=== PATIENT | male | born 1945 | race Caucasian/White ===

== ENCOUNTER 2017-04-26 09:46 | Inpatient (IN) | payer MEDICARE ==
[2017-04-26] MEDS ORDERED: Prevnar 13-Val Conj/PF 0.5 ML SYRINGE IM ONE (11:30)
[2017-04-26] MEDS ORDERED: FLU VACC TS2017-18 (>65YR) 0.5 ML SYRINGE IM ONE (11:30)
[2017-04-26] MEDS ORDERED: Bisacodyl 5 MG TAB PO PRN (13:47)
[2017-04-26] MEDS ORDERED: Non-Formulary Item 1 EACH (Omeprazole Magnesium [Prilosec Otc] 20 MG) PO PRN (13:51)
[2017-04-26] MEDS ORDERED: Tamsulosin HCl 0.4 MG CAP PO PRN (13:51)
[2017-04-26] MEDS ORDERED: Dextrose 5% in Water 1,000 ML IV PRN (13:57)
[2017-04-26] MEDS ORDERED: HumaLOG 300 UNITS/3 ML VIAL SC PRN (13:57)
[2017-04-26] MEDS ORDERED: Dextrose 50% Abboject 50 ML SYRINGE SLOW IVP PRN (13:57)
[2017-04-26] MEDS ORDERED: [UNRECOGNIZED DRUG - REMARK] IVPB PRN (14:12)
[2017-04-26] MEDS: HYDROcodone/Acetaminophen 5/325 mg Tablet PO PRN (14:27)
[2017-04-26] MEDS: Gabapentin 300 MG CAP PO SCH ×2 (14:28→21:16)
[2017-04-26] MEDS: Vancomycin HCl 1 GM in Sodium Chloride 0.9% 250 ML 250 ML IVPB SCH (14:54)
[2017-04-26] MEDS: SODIUM CHLORIDE 0.9% IVPB SCH (14:55)
[2017-04-26] MEDS: VANCOMYCIN HCL IVPB SCH (14:55)
--- NOTE | 2017-04-26 15:03 | HP ---
SWING BED ADMIT NOTE REASON FOR TRANSFER TO SWING BED: Six weeks of IV antibiotics required for diabetic foot ulcer. HISTORY OF PRESENT ILLNESS: Patient is a 71-year-old white male with significant comorbidities inclu ding hypertension, dyslipidemia, coronary artery disease status post stent placement, venous insuffic iency, diabetic neuropathy, insulin-dependent diabetes mellitus and suspected peripheral vascular dis ease who presented to [facility] with foot pain. Patient has a history of a diab etic foot ulcer who has been treated on the feet for greater than 1 month. He saw his director equipment who gave him antibiotics. He finished a course of antibiotics, but he continued to have some pain, eryt luis miguel, and discharge. He has a history of suspected Charcot malformations to his foot due to his diab etic neuropathy. In the emergency room, he was found to have a diabetic foot ulcer and admitted to [facility]. During his hospital stay there, he underwent I and D of the left foot ulcer. He also h ad a small right diabetic foot ulcer which was treated conservatively. He had blood cultures that we re positive for MRSA. It was unsure if the patient had osteomyelitis and apparently a specimen was o btained during this surgical debridement of which results are pending for infection to the bone. Dayana wilcox was otherwise medically stable and felt at that time the patient could be transferred to a [facility] nursing facility for 6 weeks of IV vancomycin pending results of the bone wound culture and daiana summers was accepted to [facility] for swing bed for IV antibiotics. PAST MEDICAL HISTORY: 1. Insulin-dependent diabetes mellitus. 2. History of diabetic neuropathy with poor sensation. 3. History of venous insufficiency. 4. History of coronary artery disease status post stent placement x4. 5. Hypertension. 6. Hyperlipidemia. 7. Charcot foot x2 with recent treatment for diabetic foot ulcer. PAST SURGICAL HISTORY: Right knee replacement x2, left knee replacement x1, cardiac catheterization, status post stent placement x4. FAMILY HISTORY: Positive for hypertension and possible history for father with uncontrolled diabetes . SOCIAL HISTORY: Patient lives with his in [place]. No significant smoking, alcohol or social drug use. The patient had been fairly independent in all activities of daily living prior to his [place] ent admission. ALLERGIES: No known drug allergies. CURRENT MEDICATIONS: Patient is on Lantus 40 units daily, metoprolol dose unknown p.o. b.i.d., aspir in 325 mg daily, atorvastatin daily, enalapril daily, [place] 10/325 p.o. q.4 hours p.r.n. pain. The p atient was recently on vancomycin q.12 hours, metformin 1000 mg b.i.d., Lasix 40 mg daily, gabapentin 600 mg t.i.d., isosorbide dinitrate 40 mg daily, and potassium chloride 20 mEq daily. The patient t akes [id number] omeprazole 20 mg daily. The patient is on CoQ10 325mg mg once a day. REVIEW OF SYSTEMS: Patient reports no significant symptoms other than what is in the HPI. No recent fevers, no chills, no nausea or vomiting. The patient reports appetite is good. No recent chest pa in or shortness of breath. No significant weight gain or weight loss. The patient reports appetite has been well. No dysuria, hematuria or change in urinary frequency. Patient denies any back pain, no significant abdominal pain. The patient reports very decreased sensation to his lower extremities , which is a chronic state. The patient denies any significant lower extremity edema. No new rashes reported by patient. Patient has no recent changes in visual function. Patient denies depression. PHYSICAL EXAMINATION: VITAL SIGNS: Blood pressure was 131/62, respiratory rate was 16, pulse was 68, temperature was 99.0, and O2 sat 97% on room air. GENERAL: White male, alert and oriented x3, in no obvious distress. HEENT: Atraumatic, normocephalic. Extraocular movements are intact. Pupils are equal, round, and r eactive to light and accommodation. Oropharynx, mucous membranes were moist. No exudate, discharge or lesions. NECK: Supple. No masses palpated, no bruits auscultated. CHEST: Clear to auscultation bilaterally. HEART: Regular rate and rhythm. ABDOMEN: Soft, nontender, nondistended, no masses were palpated. EXTREMITIES: Bandage was removed from left lower extremity showed a wound to the left medial plantar foot. There was obvious deformity of the foot noted consistent with sarcoid foot. The wound was pa cked well. There was no significant discharge, no erythema. There is really no sensation to the wou nd noted. Evaluation of right lower extremity showed a very small linear ulcer to the plantar medial aspect. No surrounding erythema, discharge or warmth noted, very difficult to palpate pulses to the lower extremities bilaterally. ASSESSMENT AND PLAN: 1. Diabetic infection, left foot with history of Charcot foot, methicillin-resistant Staphylococcus aureus bacteremia, suspected methicillin-resistant Staphylococcus aureus to the wound. The patient w ill be continued on vancomycin and he was ordered by his director equipment to have 6 weeks of vancomycin. Crista fall will await the results of the wound culture of the bone to assess for osteomyelitis. The patient's director equipment, Dr. Roa, would like to evaluate him weekly. While in the hospital, we will have loca l wound care with daily dressing changes and will repack that wound. 2. Diabetic ulcer, right foot. This appears to be very mild in character, it is very superficial, w ill continue local wound care. 3. Insulin-dependent diabetes mellitus. We will place patient on his daily long-acting insulin, Lev stephanie plus insulin sliding scale. We will place patient on diabetic diet. We will also continue his either Invokana or Jardiance. We will verify with his and will also in addition to metformin, w e will place him on a sliding scale for insulin as needed as well as a diabetic diet. 4. History coronary artery disease. Patient is currently stable from a cardiac standpoint. We will continue him on his routine medications including JENNIFER inhibitor, beta colt and nitrate. 5. Disposition: Patient is currently nonweightbearing by his director equipment. Recommendations for the l eft lower extremity, we will start him on physical therapy, range of motion exercises for the rest of the extremities. 6. Deep venous thrombosis prophylaxis. We will use SCDs as appropriate since the patient is nonweig htbearing on the left lower extremity. 7. Hypertension. We will continue patient on his current diabetic since as well as hypertensive med ications. DISCHARGE PLAN: The patient will likely be discharged to home. Again, he will likely need at least 6 weeks of IV antibiotics.
[2017-04-26] MEDS: metFORMIN XR 500 MG TAB PO SCH (17:03)
[2017-04-26] MEDS: Sodium Chloride 0.9% 10 ML ONE (19:50)
[2017-04-26] MEDS ORDERED: VIT B6 PO SCH (21:00)
[2017-04-26] MEDS ORDERED: CYANOCOBALAMIN PO SCH (21:00)
[2017-04-26] MEDS ORDERED: Non-Formulary Item 1 EACH (Metformin Hcl [Metformin Hcl Er] 1,000 MG) PO SCH (21:00)
[2017-04-26] MEDS ORDERED: Non-Formulary Item 1 EACH (Atorvastatin Calcium [Atorvastatin Calcium] 40 MG) PO SCH (21:00)
[2017-04-26] MEDS ORDERED: ENALAPRIL MALEATE 20 MG PO SCH (21:00)
[2017-04-26] MEDS ORDERED: METOPROLOL TARTRATE 25 MG PO SCH (21:00)
[2017-04-26] MEDS ORDERED: FOLIC AC PO SCH (21:00)
[2017-04-26] MEDS ORDERED: Vancomycin HCl 1.5 GM in Sodium Chloride 0.9% 250 ML 300 ML IVPB SCH (21:00)
[2017-04-26] MEDS: Potassium Chloride 20 MEQ TAB PO SCH (21:14)
[2017-04-26] MEDS: Stress 600 With Zinc 1 TAB PO SCH (21:15)
[2017-04-26] MEDS: Atorvastatin Calcium 40 MG TAB PO SCH (21:15)
[2017-04-26] MEDS: Docusate 100 MG CAP PO SCH (21:16)
[2017-04-26] MEDS: Metoprolol Tartrate 25 MG TAB PO SCH (21:17)
[2017-04-26] MEDS: HYDROcodone/Acetaminophen 10/325 mg Tablet PO PRN (21:17)
[2017-04-27] MEDS: VANCOMYCIN HCL IVPB SCH ×2 (03:12→15:02)
[2017-04-27] MEDS: SODIUM CHLORIDE 0.9% IVPB SCH ×2 (03:12→15:02)
[2017-04-27] MEDS: Vancomycin HCl 1 GM in Sodium Chloride 0.9% 250 ML 250 ML IVPB SCH ×2 (03:17→15:02)
[2017-04-27] MEDS: HYDROcodone/Acetaminophen 5/325 mg Tablet PO PRN ×2 (05:18→15:23)
[2017-04-27 05:39] LABS: #Basophils 0.1 thou/uL (0.0-0.2); #Eosinphils 0.2 thou/uL (0.0-0.7); #Lymphocytes 1.1 thou/uL (1.20-3.40); #Monocytes 0.9 thou/uL (0.11-0.59); %Eosinophils 1.8 % (0.0-10.0); %Lymphocytes 10.7 % (21.0-51.0); %Monocytes 8.8 % (0.0-10.0); %Neutrophils 77.7 % (42.0-75.0); Hemoglobin 11.1 g/dL (14.0-18.0); Mean Corpuscular HGB CONC 36.2 g/dL (32.0-36.0); Mean Corpuscular Hemoglobin 31.4 pg (27.0-31.0); Mean Corpuscular Volume 86.7 fl (80.0-94.0); Mean Platelet Volume 6.3 fL (7.4-10.4); Platelet Count 394 thou/uL (130-400); RBC Distribution Width 12.5 % (11.5-14.5); Red Blood Cell (RBC) Count 3.55 mill/uL (4.70-6.10); White Blood Cell (WBC) Count 10.2 thou/uL (4.8-10.8)
[2017-04-27 05:48] LABS: ALT (SGPT) 57 U/L (8-55); AST (SGOT) 49 U/L (5-34); Alkaline Phosphatase 185 U/L (40-150); Anion Gap 16 mmol/L (10-20); BUN (Urea Nitrogen) 14 mg/dL (8.4-25.7); Bilirubin, Total 1.1 mg/dL (0.2-1.2); Calc. Creatinine Clearance 126 mL/min (70-130); Carbon Dioxide 23 mmol/L (23-31); Chloride 99 mmol/L (98-107); Estimated GFR-MDRD Greater than 90; Globulin 4.1 g/dL (2.4-3.5); Glucose 95 mg/dL (83-110); Potassium 4.8 mmol/L (3.5-5.1); Protein, Total 7.1 g/dL (5.8-8.1); Sodium 133 mmol/L (136-145)
[2017-04-27] MEDS ORDERED: INVOKANA 100 MG PO SCH (09:00)
[2017-04-27] MEDS ORDERED: Lisinopril 20 MG TAB PO SCH (09:00)
[2017-04-27] MEDS ORDERED: UBIDECARENONE 300 MG PO SCH (09:00)
[2017-04-27] MEDS ORDERED: Non-Formulary Item 1 EACH (Canagliflozin [Invokana] 100 MG) PO SCH (09:00)
[2017-04-27] MEDS: Polyethylene Glycol 3350 17 GM Packet PO SCH (09:05)
[2017-04-27] MEDS: Stress 600 With Zinc 1 TAB PO SCH ×2 (09:08→21:23)
[2017-04-27] MEDS: Isosorbide Dinitrate 20 MG TAB PO SCH (09:09)
[2017-04-27] MEDS: Aspirin 325 MG TAB PO SCH (09:10)
[2017-04-27] MEDS: Furosemide 40 MG TAB PO SCH (09:10)
[2017-04-27] MEDS: Gabapentin 300 MG CAP PO SCH ×3 (09:10→21:23)
[2017-04-27] MEDS: Docusate 100 MG CAP PO SCH ×2 (09:10→21:23)
[2017-04-27] MEDS: metFORMIN XR 500 MG TAB PO SCH ×2 (09:13→17:17)
[2017-04-27] MEDS: Metoprolol Tartrate 25 MG TAB PO SCH ×2 (09:14→21:24)
[2017-04-27] MEDS: Sodium Chloride 0.9% 10 ML ONE (09:25)
[2017-04-27] MEDS: Enoxaparin Sodium 40 MG/0.4 ML SYRINGE SC SCH (09:26)
[2017-04-27] MEDS: Levemir Flexpen 100 UNITS/ML PEN SC SCH (09:28)
[2017-04-27] MEDS: Atorvastatin Calcium 40 MG TAB PO SCH (21:23)
[2017-04-27] MEDS: Fish Oil 1,000 MG CAP PO SCH (21:23)
[2017-04-27] MEDS: Potassium Chloride 20 MEQ TAB PO SCH (21:24)
[2017-04-28 02:26] LABS: Vancomycin, Trough 16.6 ug/mL
[2017-04-28] MEDS: Vancomycin HCl 1 GM in Sodium Chloride 0.9% 250 ML 250 ML IVPB SCH ×2 (02:53→16:28)
[2017-04-28] MEDS: SODIUM CHLORIDE 0.9% IVPB SCH ×2 (02:54→15:08)
[2017-04-28] MEDS: VANCOMYCIN HCL IVPB SCH ×2 (02:54→15:08)
[2017-04-28 05:03] LABS: Hemoglobin 10.4 g/dL (14.0-18.0); Platelet Count 420 thou/uL (130-400)
[2017-04-28 05:10] LABS: Calc. Creatinine Clearance 128 mL/min (70-130); Estimated GFR-MDRD Greater than 90
[2017-04-28] MEDS: HYDROcodone/Acetaminophen 5/325 mg Tablet PO PRN (06:26)
[2017-04-28] MEDS: metFORMIN XR 500 MG TAB PO SCH ×2 (08:45→17:35)
[2017-04-28] MEDS ORDERED: JARDIANCE 10MG PO SCH (09:00)
[2017-04-28] MEDS: Aspirin 325 MG TAB PO SCH (09:45)
[2017-04-28] MEDS: Docusate 100 MG CAP PO SCH ×2 (09:46→21:06)
[2017-04-28] MEDS: Enoxaparin Sodium 40 MG/0.4 ML SYRINGE SC SCH (09:48)
[2017-04-28] MEDS: Furosemide 40 MG TAB PO SCH (09:48)
[2017-04-28] MEDS: Gabapentin 300 MG CAP PO SCH ×3 (09:49→21:01)
[2017-04-28] MEDS: Isosorbide Dinitrate 20 MG TAB PO SCH (09:49)
[2017-04-28] MEDS: Metoprolol Tartrate 25 MG TAB PO SCH ×2 (09:50→21:05)
[2017-04-28] MEDS: Stress 600 With Zinc 1 TAB PO SCH ×2 (09:51→21:02)
[2017-04-28] MEDS: Polyethylene Glycol 3350 17 GM Packet PO SCH (09:52)
[2017-04-28] MEDS: Levemir Flexpen 100 UNITS/ML PEN SC SCH (09:56)
[2017-04-28] MEDS: JARDIANCE 10MG PO SCH (09:56)
[2017-04-28] MEDS: HYDROcodone/Acetaminophen 10/325 mg Tablet PO PRN (15:11)
[2017-04-28] MEDS: Fish Oil 1,000 MG CAP PO SCH (21:02)
[2017-04-28] MEDS: Potassium Chloride 20 MEQ TAB PO SCH (21:02)
[2017-04-28] MEDS: Atorvastatin Calcium 40 MG TAB PO SCH (21:05)
[2017-04-29] MEDS: HYDROcodone/Acetaminophen 10/325 mg Tablet PO PRN ×2 (01:30→11:37)
[2017-04-29] MEDS: Vancomycin HCl 1 GM in Sodium Chloride 0.9% 250 ML 250 ML IVPB SCH ×2 (02:58→16:10)
[2017-04-29] MEDS: VANCOMYCIN HCL IVPB SCH ×2 (02:58→15:09)
[2017-04-29] MEDS: SODIUM CHLORIDE 0.9% IVPB SCH ×2 (02:58→15:09)
[2017-04-29] MEDS: Stress 600 With Zinc 1 TAB PO SCH ×2 (08:25→20:39)
[2017-04-29] MEDS: metFORMIN XR 500 MG TAB PO SCH ×2 (08:27→18:02)
[2017-04-29] MEDS: Aspirin 325 MG TAB PO SCH (08:27)
[2017-04-29] MEDS: Atorvastatin Calcium 40 MG TAB PO SCH (08:28)
[2017-04-29] MEDS: Gabapentin 300 MG CAP PO SCH ×3 (08:28→20:39)
[2017-04-29] MEDS: Isosorbide Dinitrate 20 MG TAB PO SCH (08:29)
[2017-04-29] MEDS: Metoprolol Tartrate 25 MG TAB PO SCH ×2 (08:30→20:39)
[2017-04-29] MEDS: Polyethylene Glycol 3350 17 GM Packet PO SCH (08:31)
[2017-04-29] MEDS: JARDIANCE 10MG PO SCH (08:31)
[2017-04-29] MEDS: Levemir Flexpen 100 UNITS/ML PEN SC SCH (08:32)
[2017-04-29] MEDS: Furosemide 40 MG TAB PO SCH (08:33)
[2017-04-29] MEDS: Enoxaparin Sodium 40 MG/0.4 ML SYRINGE SC SCH (08:33)
[2017-04-29] MEDS: Docusate 100 MG CAP PO SCH ×2 (08:35→20:40)
[2017-04-29] MEDS: Nystatin Powder 15 GM BOT TOP SCH ×2 (15:10→20:42)
[2017-04-29] MEDS: Fish Oil 1,000 MG CAP PO SCH (20:39)
[2017-04-29] MEDS: Potassium Chloride 20 MEQ TAB PO SCH (20:39)
[2017-04-30] MEDS: VANCOMYCIN HCL IVPB SCH ×2 (02:55→18:03)
[2017-04-30] MEDS: SODIUM CHLORIDE 0.9% IVPB SCH ×2 (02:55→18:03)
[2017-04-30] MEDS: Vancomycin HCl 1 GM in Sodium Chloride 0.9% 250 ML 250 ML IVPB SCH ×2 (02:59→18:04)
[2017-04-30 04:07] LABS: Hemoglobin 10.1 g/dL (14.0-18.0); Platelet Count 455 thou/uL (130-400)
[2017-04-30 05:00] LABS: Calc. Creatinine Clearance 104 mL/min (70-130); Estimated GFR-MDRD Greater than 90
[2017-04-30] MEDS: metFORMIN XR 500 MG TAB PO SCH ×2 (09:11→18:13)
[2017-04-30] MEDS: Atorvastatin Calcium 40 MG TAB PO SCH (09:11)
[2017-04-30] MEDS: Isosorbide Dinitrate 20 MG TAB PO SCH (09:11)
[2017-04-30] MEDS: Gabapentin 300 MG CAP PO SCH ×3 (09:11→21:09)
[2017-04-30] MEDS: Furosemide 40 MG TAB PO SCH (09:12)
[2017-04-30] MEDS: Aspirin 325 MG TAB PO SCH (09:12)
[2017-04-30] MEDS: Stress 600 With Zinc 1 TAB PO SCH ×2 (09:12→21:08)
[2017-04-30] MEDS: Metoprolol Tartrate 25 MG TAB PO SCH ×2 (09:12→21:14)
[2017-04-30] MEDS: Docusate 100 MG CAP PO SCH ×2 (09:12→21:10)
[2017-04-30] MEDS: Polyethylene Glycol 3350 17 GM Packet PO SCH (09:13)
[2017-04-30] MEDS: Enoxaparin Sodium 40 MG/0.4 ML SYRINGE SC SCH (09:13)
[2017-04-30] MEDS: Nystatin Powder 15 GM BOT TOP SCH ×3 (09:15→21:10)
[2017-04-30] MEDS: JARDIANCE 10MG PO SCH (09:15)
[2017-04-30] MEDS: Levemir Flexpen 100 UNITS/ML PEN SC SCH (09:17)
[2017-04-30 17:15] LABS: Vancomycin, Trough 25.1 ug/mL
[2017-04-30] MEDS: Fish Oil 1,000 MG CAP PO SCH (21:08)
[2017-04-30] MEDS: Potassium Chloride 20 MEQ TAB PO SCH (21:09)
[2017-05-01] MEDS: Vancomycin HCl 1 GM in Sodium Chloride 0.9% 250 ML 250 ML IVPB SCH ×2 (02:52→14:44)
[2017-05-01] MEDS: metFORMIN XR 500 MG TAB PO SCH ×2 (08:21→17:59)
[2017-05-01] MEDS: Isosorbide Dinitrate 20 MG TAB PO SCH (08:22)
[2017-05-01] MEDS: Aspirin 325 MG TAB PO SCH (08:23)
[2017-05-01] MEDS: Saccharomyces boulardii 250 MG CAP PO SCH (08:24)
[2017-05-01] MEDS: Gabapentin 300 MG CAP PO SCH ×3 (08:24→21:02)
[2017-05-01] MEDS: Metoprolol Tartrate 25 MG TAB PO SCH ×2 (08:25→21:03)
[2017-05-01] MEDS: Atorvastatin Calcium 40 MG TAB PO SCH (08:26)
[2017-05-01] MEDS: Stress 600 With Zinc 1 TAB PO SCH ×2 (08:27→21:06)
[2017-05-01] MEDS: Furosemide 40 MG TAB PO SCH (08:27)
[2017-05-01] MEDS: Polyethylene Glycol 3350 17 GM Packet PO SCH (08:28)
[2017-05-01] MEDS: Docusate 100 MG CAP PO SCH ×2 (08:28→21:04)
[2017-05-01] MEDS: Enoxaparin Sodium 40 MG/0.4 ML SYRINGE SC SCH (08:29)
[2017-05-01] MEDS: JARDIANCE 10MG PO SCH (08:31)
[2017-05-01] MEDS: Nystatin Powder 15 GM BOT TOP SCH ×3 (08:32→21:04)
[2017-05-01] MEDS: Levemir Flexpen 100 UNITS/ML PEN SC SCH (08:33)
[2017-05-01 13:24] LABS: ALT (SGPT) 98 U/L (8-55); AST (SGOT) 96 U/L (5-34); Albumin 2.8 g/dL (3.4-4.8); Alkaline Phosphatase 135 U/L (40-150); Anion Gap 15 mmol/L (10-20); BUN (Urea Nitrogen) 18 mg/dL (8.4-25.7); Bilirubin, Total 0.5 mg/dL (0.2-1.2); Calc. Creatinine Clearance 104 mL/min (70-130); Calcium 9.5 mg/dL (7.8-10.44); Carbon Dioxide 24 mmol/L (23-31); Chloride 96 mmol/L (98-107); Estimated GFR-MDRD Greater than 90; Glucose 139 mg/dL (83-110); Potassium 4.5 mmol/L (3.5-5.1); Protein, Total 6.8 g/dL (5.8-8.1); Sodium 130 mmol/L (136-145)
[2017-05-01] MEDS: Potassium Chloride 20 MEQ TAB PO SCH (21:02)
[2017-05-01] MEDS: Fish Oil 1,000 MG CAP PO SCH (21:03)
[2017-05-02] MEDS: Vancomycin HCl 1 GM in Sodium Chloride 0.9% 250 ML 250 ML IVPB SCH ×2 (02:54→15:11)
[2017-05-02 05:20] LABS: Hemoglobin 10.6 g/dL (14.0-18.0); Platelet Count 542 thou/uL (130-400)
[2017-05-02 05:28] LABS: Calc. Creatinine Clearance 114 mL/min (70-130); Estimated GFR-MDRD Greater than 90
[2017-05-02] MEDS: Gabapentin 300 MG CAP PO SCH ×3 (08:41→21:21)
[2017-05-02] MEDS: metFORMIN XR 500 MG TAB PO SCH ×2 (08:41→18:11)
[2017-05-02] MEDS: Saccharomyces boulardii 250 MG CAP PO SCH (08:41)
[2017-05-02] MEDS: Atorvastatin Calcium 40 MG TAB PO SCH (08:42)
[2017-05-02] MEDS: Isosorbide Dinitrate 20 MG TAB PO SCH (08:42)
[2017-05-02] MEDS: Furosemide 40 MG TAB PO SCH (08:42)
[2017-05-02] MEDS: Stress 600 With Zinc 1 TAB PO SCH ×2 (08:42→21:20)
[2017-05-02] MEDS: Aspirin 325 MG TAB PO SCH (08:43)
[2017-05-02] MEDS: Metoprolol Tartrate 25 MG TAB PO SCH ×2 (08:43→21:21)
[2017-05-02] MEDS: Polyethylene Glycol 3350 17 GM Packet PO SCH (08:44)
[2017-05-02] MEDS: Docusate 100 MG CAP PO SCH ×2 (08:44→21:21)
[2017-05-02] MEDS: JARDIANCE 10MG PO SCH (08:44)
[2017-05-02] MEDS: Enoxaparin Sodium 40 MG/0.4 ML SYRINGE SC SCH (08:46)
[2017-05-02] MEDS: Nystatin Powder 15 GM BOT TOP SCH ×3 (08:46→21:22)
[2017-05-02] MEDS: Levemir Flexpen 100 UNITS/ML PEN SC SCH (08:48)
[2017-05-02 14:15] LABS: Vancomycin, Trough 17.9 ug/mL
[2017-05-02] MEDS: Fish Oil 1,000 MG CAP PO SCH (21:20)
[2017-05-02] MEDS: Potassium Chloride 20 MEQ TAB PO SCH (21:22)
[2017-05-03] MEDS: Vancomycin HCl 1 GM in Sodium Chloride 0.9% 250 ML 250 ML IVPB SCH ×2 (02:48→14:09)
[2017-05-03] MEDS: metFORMIN XR 500 MG TAB PO SCH ×2 (08:01→17:41)
[2017-05-03] MEDS: Aspirin 325 MG TAB PO SCH (08:02)
[2017-05-03] MEDS: Gabapentin 300 MG CAP PO SCH ×3 (08:02→20:55)
[2017-05-03] MEDS: Atorvastatin Calcium 40 MG TAB PO SCH (08:03)
[2017-05-03] MEDS: Isosorbide Dinitrate 20 MG TAB PO SCH (08:03)
[2017-05-03] MEDS: Enoxaparin Sodium 40 MG/0.4 ML SYRINGE SC SCH (08:04)
[2017-05-03] MEDS: Metoprolol Tartrate 25 MG TAB PO SCH ×2 (08:04→20:57)
[2017-05-03] MEDS: Saccharomyces boulardii 250 MG CAP PO SCH (08:04)
[2017-05-03] MEDS: Furosemide 40 MG TAB PO SCH (08:06)
[2017-05-03] MEDS: Docusate 100 MG CAP PO SCH ×2 (08:06→20:56)
[2017-05-03] MEDS: Polyethylene Glycol 3350 17 GM Packet PO SCH (08:06)
[2017-05-03] MEDS: JARDIANCE 10MG PO SCH (08:06)
[2017-05-03] MEDS: Stress 600 With Zinc 1 TAB PO SCH ×2 (08:07→20:55)
[2017-05-03] MEDS: Nystatin Powder 15 GM BOT TOP SCH ×3 (08:07→20:59)
[2017-05-03] MEDS: Levemir Flexpen 100 UNITS/ML PEN SC SCH (08:08)
[2017-05-03] MEDS: HumaLOG 300 UNITS/3 ML VIAL SC PRN (12:51)
[2017-05-03] MEDS: HYDROcodone/Acetaminophen 10/325 mg Tablet PO PRN ×3 (13:56→22:17)
[2017-05-03] MEDS: Fish Oil 1,000 MG CAP PO SCH (20:55)
[2017-05-03] MEDS: Potassium Chloride 20 MEQ TAB PO SCH (20:56)
[2017-05-04] MEDS: Vancomycin HCl 1 GM in Sodium Chloride 0.9% 250 ML 250 ML IVPB SCH ×2 (02:31→14:59)
[2017-05-04 06:02] LABS: Hemoglobin 11.1 g/dL (14.0-18.0); Platelet Count 452 thou/uL (130-400)
[2017-05-04 06:06] LABS: Calc. Creatinine Clearance 104 mL/min (70-130); Estimated GFR-MDRD Greater than 90
[2017-05-04] MEDS: Levemir Flexpen 100 UNITS/ML PEN SC SCH (09:06)
[2017-05-04] MEDS: Polyethylene Glycol 3350 17 GM Packet PO SCH (09:09)
[2017-05-04] MEDS: Isosorbide Dinitrate 20 MG TAB PO SCH (09:10)
[2017-05-04] MEDS: Stress 600 With Zinc 1 TAB PO SCH ×2 (09:10→20:47)
[2017-05-04] MEDS: Gabapentin 300 MG CAP PO SCH ×3 (09:10→20:45)
[2017-05-04] MEDS: Atorvastatin Calcium 40 MG TAB PO SCH (09:10)
[2017-05-04] MEDS: Furosemide 40 MG TAB PO SCH (09:10)
[2017-05-04] MEDS: Metoprolol Tartrate 25 MG TAB PO SCH ×2 (09:11→20:46)
[2017-05-04] MEDS: Saccharomyces boulardii 250 MG CAP PO SCH (09:11)
[2017-05-04] MEDS: Docusate 100 MG CAP PO SCH ×2 (09:11→20:44)
[2017-05-04] MEDS: Aspirin 325 MG TAB PO SCH (09:12)
[2017-05-04] MEDS: metFORMIN XR 500 MG TAB PO SCH ×2 (09:12→17:33)
[2017-05-04] MEDS: JARDIANCE 10MG PO SCH (09:13)
[2017-05-04] MEDS: Nystatin Powder 15 GM BOT TOP SCH ×3 (09:14→20:47)
[2017-05-04] MEDS: Enoxaparin Sodium 40 MG/0.4 ML SYRINGE SC SCH (09:21)
[2017-05-04] MEDS: HumaLOG 300 UNITS/3 ML VIAL SC PRN (13:17)
[2017-05-04 14:29] LABS: Vancomycin, Trough 20.3 ug/mL
[2017-05-04] MEDS: Fish Oil 1,000 MG CAP PO SCH (20:44)
[2017-05-04] MEDS: Potassium Chloride 20 MEQ TAB PO SCH (20:46)
[2017-05-05] MEDS: Vancomycin HCl 1 GM in Sodium Chloride 0.9% 250 ML 250 ML IVPB SCH ×2 (02:34→15:15)
[2017-05-05] MEDS: Levemir Flexpen 100 UNITS/ML PEN SC SCH (08:58)
[2017-05-05] MEDS: Enoxaparin Sodium 40 MG/0.4 ML SYRINGE SC SCH (09:01)
[2017-05-05] MEDS: Polyethylene Glycol 3350 17 GM Packet PO SCH (09:03)
[2017-05-05] MEDS: Stress 600 With Zinc 1 TAB PO SCH ×2 (09:03→20:14)
[2017-05-05] MEDS: Gabapentin 300 MG CAP PO SCH ×3 (09:04→20:15)
[2017-05-05] MEDS: Atorvastatin Calcium 40 MG TAB PO SCH (09:04)
[2017-05-05] MEDS: Metoprolol Tartrate 25 MG TAB PO SCH ×2 (09:04→20:16)
[2017-05-05] MEDS: Aspirin 325 MG TAB PO SCH (09:05)
[2017-05-05] MEDS: Isosorbide Dinitrate 20 MG TAB PO SCH (09:05)
[2017-05-05] MEDS: metFORMIN XR 500 MG TAB PO SCH ×2 (09:05→18:12)
[2017-05-05] MEDS: Docusate 100 MG CAP PO SCH ×2 (09:05→20:15)
[2017-05-05] MEDS: Furosemide 40 MG TAB PO SCH (09:05)
[2017-05-05] MEDS: Saccharomyces boulardii 250 MG CAP PO SCH (09:06)
[2017-05-05] MEDS: JARDIANCE 10MG PO SCH (09:07)
[2017-05-05] MEDS: Nystatin Powder 15 GM BOT TOP SCH ×3 (09:08→20:16)
[2017-05-05] MEDS: Fish Oil 1,000 MG CAP PO SCH (20:14)
[2017-05-05] MEDS: Potassium Chloride 20 MEQ TAB PO SCH (20:16)
[2017-05-06] MEDS: Vancomycin HCl 1 GM in Sodium Chloride 0.9% 250 ML 250 ML IVPB SCH ×2 (02:14→14:41)
[2017-05-06 05:48] LABS: Platelet Count 456 thou/uL (130-400)
[2017-05-06 05:55] LABS: Calc. Creatinine Clearance 113 mL/min (70-130); Estimated GFR-MDRD Greater than 90
[2017-05-06] MEDS: Levemir Flexpen 100 UNITS/ML PEN SC SCH (07:44)
[2017-05-06] MEDS: Enoxaparin Sodium 40 MG/0.4 ML SYRINGE SC SCH (07:46)
[2017-05-06] MEDS: JARDIANCE 10MG PO SCH (07:47)
[2017-05-06] MEDS: Gabapentin 300 MG CAP PO SCH ×3 (07:49→20:41)
[2017-05-06] MEDS: Isosorbide Dinitrate 20 MG TAB PO SCH (07:49)
[2017-05-06] MEDS: Metoprolol Tartrate 25 MG TAB PO SCH ×2 (07:49→20:41)
[2017-05-06] MEDS: Atorvastatin Calcium 40 MG TAB PO SCH (07:50)
[2017-05-06] MEDS: Stress 600 With Zinc 1 TAB PO SCH ×2 (07:50→20:43)
[2017-05-06] MEDS: metFORMIN XR 500 MG TAB PO SCH ×2 (07:50→17:19)
[2017-05-06] MEDS: Furosemide 40 MG TAB PO SCH (07:50)
[2017-05-06] MEDS: Nystatin Powder 15 GM BOT TOP SCH ×3 (07:51→20:41)
[2017-05-06] MEDS: Aspirin 325 MG TAB PO SCH (07:51)
[2017-05-06] MEDS: Saccharomyces boulardii 250 MG CAP PO SCH (07:51)
[2017-05-06] MEDS: Docusate 100 MG CAP PO SCH ×2 (07:53→20:40)
[2017-05-06] MEDS: Polyethylene Glycol 3350 17 GM Packet PO SCH (07:53)
[2017-05-06 14:22] LABS: Vancomycin, Trough 18.2 ug/mL
[2017-05-06] MEDS: Fish Oil 1,000 MG CAP PO SCH (20:41)
[2017-05-06] MEDS: Potassium Chloride 20 MEQ TAB PO SCH (20:42)
[2017-05-07] MEDS: Vancomycin HCl 1 GM in Sodium Chloride 0.9% 250 ML 250 ML IVPB SCH ×2 (02:55→15:12)
[2017-05-07] MEDS: Levemir Flexpen 100 UNITS/ML PEN SC SCH (08:02)
[2017-05-07] MEDS: Enoxaparin Sodium 40 MG/0.4 ML SYRINGE SC SCH (08:08)
[2017-05-07] MEDS: Stress 600 With Zinc 1 TAB PO SCH ×2 (08:11→21:44)
[2017-05-07] MEDS: Polyethylene Glycol 3350 17 GM Packet PO SCH (08:11)
[2017-05-07] MEDS: Metoprolol Tartrate 25 MG TAB PO SCH ×2 (08:12→21:43)
[2017-05-07] MEDS: Gabapentin 300 MG CAP PO SCH ×3 (08:12→21:42)
[2017-05-07] MEDS: Isosorbide Dinitrate 20 MG TAB PO SCH (08:12)
[2017-05-07] MEDS: Atorvastatin Calcium 40 MG TAB PO SCH (08:12)
[2017-05-07] MEDS: Furosemide 40 MG TAB PO SCH (08:13)
[2017-05-07] MEDS: JARDIANCE 10MG PO SCH (08:14)
[2017-05-07] MEDS: Aspirin 325 MG TAB PO SCH (08:14)
[2017-05-07] MEDS: Saccharomyces boulardii 250 MG CAP PO SCH (08:14)
[2017-05-07] MEDS: Docusate 100 MG CAP PO SCH ×2 (08:15→21:40)
[2017-05-07] MEDS: metFORMIN XR 500 MG TAB PO SCH ×2 (08:15→18:09)
[2017-05-07] MEDS: Nystatin Powder 15 GM BOT TOP SCH ×3 (08:16→21:44)
[2017-05-07] MEDS: HumaLOG 300 UNITS/3 ML VIAL SC PRN (13:42)
[2017-05-07] MEDS: Fish Oil 1,000 MG CAP PO SCH (21:41)
[2017-05-07] MEDS: Potassium Chloride 20 MEQ TAB PO SCH (21:43)
[2017-05-08] MEDS: Vancomycin HCl 1 GM in Sodium Chloride 0.9% 250 ML 250 ML IVPB SCH ×2 (02:58→15:37)
[2017-05-08 06:02] LABS: Calc. Creatinine Clearance 118 mL/min (70-130); Estimated GFR-MDRD Greater than 90
[2017-05-08 06:03] LABS: Hemoglobin 10.7 g/dL (14.0-18.0); Platelet Count 436 thou/uL (130-400)
[2017-05-08] MEDS: metFORMIN XR 500 MG TAB PO SCH ×2 (10:08→20:39)
[2017-05-08] MEDS: Aspirin 325 MG TAB PO SCH (10:09)
[2017-05-08] MEDS: Docusate 100 MG CAP PO SCH ×2 (10:10→20:24)
[2017-05-08] MEDS: Atorvastatin Calcium 40 MG TAB PO SCH (10:10)
[2017-05-08] MEDS: Gabapentin 300 MG CAP PO SCH ×3 (10:11→20:24)
[2017-05-08] MEDS: Enoxaparin Sodium 40 MG/0.4 ML SYRINGE SC SCH (10:11)
[2017-05-08] MEDS: Furosemide 40 MG TAB PO SCH (10:11)
[2017-05-08] MEDS: Isosorbide Dinitrate 20 MG TAB PO SCH (10:12)
[2017-05-08] MEDS: Levemir Flexpen 100 UNITS/ML PEN SC SCH (10:12)
[2017-05-08] MEDS: JARDIANCE 10MG PO SCH (10:13)
[2017-05-08] MEDS: Nystatin Powder 15 GM BOT TOP SCH ×3 (10:13→20:24)
[2017-05-08] MEDS: Stress 600 With Zinc 1 TAB PO SCH ×2 (10:16→20:24)
[2017-05-08] MEDS: Saccharomyces boulardii 250 MG CAP PO SCH (10:16)
[2017-05-08] MEDS: Polyethylene Glycol 3350 17 GM Packet PO SCH (10:16)
[2017-05-08] MEDS: Metoprolol Tartrate 25 MG TAB PO SCH ×2 (10:19→20:24)
[2017-05-08] MEDS: HumaLOG 300 UNITS/3 ML VIAL SC PRN (14:13)
[2017-05-08] MEDS: Fish Oil 1,000 MG CAP PO SCH (20:23)
[2017-05-08] MEDS: Potassium Chloride 20 MEQ TAB PO SCH (20:24)
[2017-05-09] MEDS: Vancomycin HCl 1 GM in Sodium Chloride 0.9% 250 ML 250 ML IVPB SCH ×2 (02:34→15:22)
[2017-05-09] MEDS: Gabapentin 300 MG CAP PO SCH ×3 (10:12→21:37)
[2017-05-09] MEDS: Stress 600 With Zinc 1 TAB PO SCH ×2 (10:12→21:38)
[2017-05-09] MEDS: Isosorbide Dinitrate 20 MG TAB PO SCH (10:13)
[2017-05-09] MEDS: Saccharomyces boulardii 250 MG CAP PO SCH (10:14)
[2017-05-09] MEDS: metFORMIN XR 500 MG TAB PO SCH ×2 (10:15→17:17)
[2017-05-09] MEDS: Atorvastatin Calcium 40 MG TAB PO SCH (10:15)
[2017-05-09] MEDS: Metoprolol Tartrate 25 MG TAB PO SCH ×2 (10:15→21:38)
[2017-05-09] MEDS: Aspirin 325 MG TAB PO SCH (10:16)
[2017-05-09] MEDS: Furosemide 40 MG TAB PO SCH (10:16)
[2017-05-09] MEDS: Docusate 100 MG CAP PO SCH ×2 (10:18→21:36)
[2017-05-09] MEDS: Polyethylene Glycol 3350 17 GM Packet PO SCH (10:18)
[2017-05-09] MEDS: JARDIANCE 10MG PO SCH (10:19)
[2017-05-09] MEDS: Enoxaparin Sodium 40 MG/0.4 ML SYRINGE SC SCH (10:19)
[2017-05-09] MEDS: Nystatin Powder 15 GM BOT TOP SCH ×3 (10:20→21:37)
[2017-05-09] MEDS: Levemir Flexpen 100 UNITS/ML PEN SC SCH (10:22)
[2017-05-09] MEDS: HYDROcodone/Acetaminophen 5/325 mg Tablet PO PRN (11:50)
[2017-05-09] MEDS: HumaLOG 300 UNITS/3 ML VIAL SC PRN (13:30)
[2017-05-09 14:26] LABS: Vancomycin, Trough 16.9 ug/mL
[2017-05-09] MEDS: Fish Oil 1,000 MG CAP PO SCH (21:36)
[2017-05-09] MEDS: Potassium Chloride 20 MEQ TAB PO SCH (21:37)
[2017-05-10] MEDS: Vancomycin HCl 1 GM in Sodium Chloride 0.9% 250 ML 250 ML IVPB SCH ×2 (02:36→14:56)
[2017-05-10 05:18] LABS: Hemoglobin 10.9 g/dL (14.0-18.0); Platelet Count 392 thou/uL (130-400)
[2017-05-10 05:25] LABS: Calc. Creatinine Clearance 122 mL/min (70-130); Estimated GFR-MDRD Greater than 90
[2017-05-10] MEDS: HYDROcodone/Acetaminophen 10/325 mg Tablet PO PRN (05:31)
[2017-05-10] MEDS: Levemir Flexpen 100 UNITS/ML PEN SC SCH (11:56)
[2017-05-10] MEDS: Enoxaparin Sodium 40 MG/0.4 ML SYRINGE SC SCH (11:59)
[2017-05-10] MEDS: JARDIANCE 10MG PO SCH (12:00)
[2017-05-10] MEDS: Isosorbide Dinitrate 20 MG TAB PO SCH (12:02)
[2017-05-10] MEDS: Gabapentin 300 MG CAP PO SCH ×3 (12:02→20:51)
[2017-05-10] MEDS: Atorvastatin Calcium 40 MG TAB PO SCH (12:02)
[2017-05-10] MEDS: Furosemide 40 MG TAB PO SCH (12:03)
[2017-05-10] MEDS: Saccharomyces boulardii 250 MG CAP PO SCH (12:03)
[2017-05-10] MEDS: Stress 600 With Zinc 1 TAB PO SCH ×2 (12:03→20:52)
[2017-05-10] MEDS: metFORMIN XR 500 MG TAB PO SCH ×2 (12:04→17:14)
[2017-05-10] MEDS: Metoprolol Tartrate 25 MG TAB PO SCH ×2 (12:04→20:51)
[2017-05-10] MEDS: Aspirin 325 MG TAB PO SCH (12:04)
[2017-05-10] MEDS: Polyethylene Glycol 3350 17 GM Packet PO SCH (12:05)
[2017-05-10] MEDS: Nystatin Powder 15 GM BOT TOP SCH ×3 (12:06→20:51)
[2017-05-10] MEDS: Docusate 100 MG CAP PO SCH ×2 (12:06→20:50)
[2017-05-10] MEDS: Fish Oil 1,000 MG CAP PO SCH (20:50)
[2017-05-10] MEDS: Potassium Chloride 20 MEQ TAB PO SCH (20:52)
[2017-05-11] MEDS: Vancomycin HCl 1 GM in Sodium Chloride 0.9% 250 ML 250 ML IVPB SCH ×2 (02:51→15:14)
[2017-05-11] MEDS: HYDROcodone/Acetaminophen 5/325 mg Tablet PO PRN (08:09)
[2017-05-11] MEDS: JARDIANCE 10MG PO SCH (08:12)
[2017-05-11] MEDS: Levemir Flexpen 100 UNITS/ML PEN SC SCH (08:13)
[2017-05-11] MEDS: Enoxaparin Sodium 40 MG/0.4 ML SYRINGE SC SCH (08:21)
[2017-05-11] MEDS: Saccharomyces boulardii 250 MG CAP PO SCH (08:23)
[2017-05-11] MEDS: Docusate 100 MG CAP PO SCH ×2 (08:23→21:23)
[2017-05-11] MEDS: Gabapentin 300 MG CAP PO SCH ×3 (08:24→21:22)
[2017-05-11] MEDS: metFORMIN XR 500 MG TAB PO SCH ×2 (08:25→17:24)
[2017-05-11] MEDS: Furosemide 40 MG TAB PO SCH (08:25)
[2017-05-11] MEDS: Stress 600 With Zinc 1 TAB PO SCH ×2 (08:27→21:21)
[2017-05-11] MEDS: Isosorbide Dinitrate 20 MG TAB PO SCH (08:27)
[2017-05-11] MEDS: Metoprolol Tartrate 25 MG TAB PO SCH ×2 (08:27→21:22)
[2017-05-11] MEDS: Aspirin 325 MG TAB PO SCH (08:27)
[2017-05-11] MEDS: Atorvastatin Calcium 40 MG TAB PO SCH (08:27)
[2017-05-11] MEDS: Polyethylene Glycol 3350 17 GM Packet PO SCH (08:28)
[2017-05-11] MEDS: Nystatin Powder 15 GM BOT TOP SCH ×3 (08:30→21:26)
[2017-05-11] MEDS: Potassium Chloride 20 MEQ TAB PO SCH (21:22)
[2017-05-11] MEDS: Fish Oil 1,000 MG CAP PO SCH (21:22)
[2017-05-12] MEDS: Vancomycin HCl 1 GM in Sodium Chloride 0.9% 250 ML 250 ML IVPB SCH ×2 (02:44→15:39)
[2017-05-12 05:42] LABS: Calc. Creatinine Clearance 115 mL/min (70-130); Estimated GFR-MDRD Greater than 90; Hemoglobin 10.4 g/dL (14.0-18.0); Platelet Count 307 thou/uL (130-400)
[2017-05-12] MEDS: HYDROcodone/Acetaminophen 10/325 mg Tablet PO PRN (06:39)
[2017-05-12] MEDS: Furosemide 40 MG TAB PO SCH (08:59)
[2017-05-12] MEDS: Gabapentin 300 MG CAP PO SCH ×3 (08:59→20:51)
[2017-05-12] MEDS: metFORMIN XR 500 MG TAB PO SCH ×2 (09:00→17:04)
[2017-05-12] MEDS: Aspirin 325 MG TAB PO SCH (09:00)
[2017-05-12] MEDS: Isosorbide Dinitrate 20 MG TAB PO SCH (09:00)
[2017-05-12] MEDS: Stress 600 With Zinc 1 TAB PO SCH ×2 (09:00→20:51)
[2017-05-12] MEDS: Atorvastatin Calcium 40 MG TAB PO SCH (09:00)
[2017-05-12] MEDS: Saccharomyces boulardii 250 MG CAP PO SCH (09:00)
[2017-05-12] MEDS: Metoprolol Tartrate 25 MG TAB PO SCH ×2 (09:01→20:51)
[2017-05-12] MEDS: Nystatin Powder 15 GM BOT TOP SCH ×3 (09:01→21:56)
[2017-05-12] MEDS: JARDIANCE 10MG PO SCH (09:03)
[2017-05-12] MEDS: Docusate 100 MG CAP PO SCH ×2 (09:03→21:56)
[2017-05-12] MEDS: Enoxaparin Sodium 40 MG/0.4 ML SYRINGE SC SCH (09:05)
[2017-05-12] MEDS: Polyethylene Glycol 3350 17 GM Packet PO SCH (09:06)
[2017-05-12] MEDS: Levemir Flexpen 100 UNITS/ML PEN SC SCH (09:07)
[2017-05-12] MEDS: Potassium Chloride 20 MEQ TAB PO SCH (20:51)
[2017-05-12] MEDS: Fish Oil 1,000 MG CAP PO SCH (20:51)
[2017-05-13] MEDS: Vancomycin HCl 1 GM in Sodium Chloride 0.9% 250 ML 250 ML IVPB SCH ×2 (03:07→15:19)
[2017-05-13] MEDS: metFORMIN XR 500 MG TAB PO SCH ×2 (08:11→18:14)
[2017-05-13] MEDS: Atorvastatin Calcium 40 MG TAB PO SCH (08:12)
[2017-05-13] MEDS: Aspirin 325 MG TAB PO SCH (08:12)
[2017-05-13] MEDS: Enoxaparin Sodium 40 MG/0.4 ML SYRINGE SC SCH (08:12)
[2017-05-13] MEDS: Docusate 100 MG CAP PO SCH ×2 (08:12→22:10)
[2017-05-13] MEDS: Gabapentin 300 MG CAP PO SCH ×3 (08:13→22:09)
[2017-05-13] MEDS: Metoprolol Tartrate 25 MG TAB PO SCH ×2 (08:13→22:10)
[2017-05-13] MEDS: Isosorbide Dinitrate 20 MG TAB PO SCH (08:13)
[2017-05-13] MEDS: Furosemide 40 MG TAB PO SCH ×2 (08:13→08:37)
[2017-05-13] MEDS: Stress 600 With Zinc 1 TAB PO SCH ×2 (08:13→22:09)
[2017-05-13] MEDS: Polyethylene Glycol 3350 17 GM Packet PO SCH (08:14)
[2017-05-13] MEDS: Saccharomyces boulardii 250 MG CAP PO SCH (08:14)
[2017-05-13] MEDS: JARDIANCE 10MG PO SCH (08:16)
[2017-05-13] MEDS: Nystatin Powder 15 GM BOT TOP SCH ×3 (08:17→22:11)
[2017-05-13] MEDS: Levemir Flexpen 100 UNITS/ML PEN SC SCH (08:17)
[2017-05-13] MEDS: HumaLOG 300 UNITS/3 ML VIAL SC PRN (18:16)
[2017-05-13] MEDS: Fish Oil 1,000 MG CAP PO SCH (22:10)
[2017-05-13] MEDS: Potassium Chloride 20 MEQ TAB PO SCH (22:10)
[2017-05-14] MEDS: Vancomycin HCl 1 GM in Sodium Chloride 0.9% 250 ML 250 ML IVPB SCH ×2 (03:27→14:29)
[2017-05-14 05:58] LABS: Hemoglobin 10.7 g/dL (14.0-18.0)
[2017-05-14 05:59] LABS: Platelet Count 269 thou/uL (130-400)
[2017-05-14 06:02] LABS: Calc. Creatinine Clearance 118 mL/min (70-130); Estimated GFR-MDRD Greater than 90
[2017-05-14] MEDS: JARDIANCE 10MG PO SCH (08:27)
[2017-05-14] MEDS: Isosorbide Dinitrate 20 MG TAB PO SCH (08:30)
[2017-05-14] MEDS: Nystatin Powder 15 GM BOT TOP SCH ×3 (08:30→21:07)
[2017-05-14] MEDS: Aspirin 325 MG TAB PO SCH (08:30)
[2017-05-14] MEDS: Gabapentin 300 MG CAP PO SCH ×3 (08:31→21:05)
[2017-05-14] MEDS: Atorvastatin Calcium 40 MG TAB PO SCH (08:31)
[2017-05-14] MEDS: metFORMIN XR 500 MG TAB PO SCH ×2 (08:31→17:58)
[2017-05-14] MEDS: Saccharomyces boulardii 250 MG CAP PO SCH (08:31)
[2017-05-14] MEDS: Enoxaparin Sodium 40 MG/0.4 ML SYRINGE SC SCH (08:32)
[2017-05-14] MEDS: Docusate 100 MG CAP PO SCH ×2 (08:32→21:10)
[2017-05-14] MEDS: Furosemide 40 MG TAB PO SCH (08:33)
[2017-05-14] MEDS: Metoprolol Tartrate 25 MG TAB PO SCH ×2 (08:33→21:06)
[2017-05-14] MEDS: Polyethylene Glycol 3350 17 GM Packet PO SCH (08:34)
[2017-05-14] MEDS: Stress 600 With Zinc 1 TAB PO SCH ×2 (08:34→21:10)
[2017-05-14] MEDS: Levemir Flexpen 100 UNITS/ML PEN SC SCH (08:36)
[2017-05-14] MEDS: Potassium Chloride 20 MEQ TAB PO SCH (21:06)
[2017-05-14] MEDS: Fish Oil 1,000 MG CAP PO SCH (21:06)
[2017-05-15] MEDS: Vancomycin HCl 1 GM in Sodium Chloride 0.9% 250 ML 250 ML IVPB SCH ×2 (02:54→14:24)
[2017-05-15] MEDS: metFORMIN XR 500 MG TAB PO SCH ×2 (09:09→16:32)
[2017-05-15] MEDS: Aspirin 325 MG TAB PO SCH (09:10)
[2017-05-15] MEDS: Atorvastatin Calcium 40 MG TAB PO SCH (09:11)
[2017-05-15] MEDS: Docusate 100 MG CAP PO SCH ×2 (09:11→22:33)
[2017-05-15] MEDS: Enoxaparin Sodium 40 MG/0.4 ML SYRINGE SC SCH (09:11)
[2017-05-15] MEDS: Furosemide 40 MG TAB PO SCH (09:12)
[2017-05-15] MEDS: Isosorbide Dinitrate 20 MG TAB PO SCH (09:12)
[2017-05-15] MEDS: Gabapentin 300 MG CAP PO SCH ×3 (09:12→22:31)
[2017-05-15] MEDS: Saccharomyces boulardii 250 MG CAP PO SCH (09:13)
[2017-05-15] MEDS: Metoprolol Tartrate 25 MG TAB PO SCH ×2 (09:13→22:31)
[2017-05-15] MEDS: Nystatin Powder 15 GM BOT TOP SCH ×3 (09:13→22:32)
[2017-05-15] MEDS: JARDIANCE 10MG PO SCH (09:14)
[2017-05-15] MEDS: Stress 600 With Zinc 1 TAB PO SCH ×3 (09:15→22:31)
[2017-05-15] MEDS: Polyethylene Glycol 3350 17 GM Packet PO SCH (09:20)
[2017-05-15] MEDS: Levemir Flexpen 100 UNITS/ML PEN SC SCH (09:22)
[2017-05-15 14:19] LABS: Vancomycin, Trough 14.9 ug/mL
[2017-05-15] MEDS: HYDROcodone/Acetaminophen 10/325 mg Tablet PO PRN (16:31)
[2017-05-15] MEDS: Fish Oil 1,000 MG CAP PO SCH (22:31)
[2017-05-15] MEDS: Potassium Chloride 20 MEQ TAB PO SCH (22:31)
[2017-05-16] MEDS: Vancomycin HCl 1 GM in Sodium Chloride 0.9% 250 ML 250 ML IVPB SCH (03:08)
[2017-05-16 05:40] LABS: Calc. Creatinine Clearance 113 mL/min (70-130); Estimated GFR-MDRD Greater than 90
[2017-05-16 06:04] LABS: Hemoglobin 11.3 g/dL (14.0-18.0); Platelet Count 262 thou/uL (130-400)
[2017-05-16] MEDS: HYDROcodone/Acetaminophen 5/325 mg Tablet PO PRN (06:51)
[2017-05-16] MEDS: JARDIANCE 10MG PO SCH (08:29)
[2017-05-16] MEDS: Metoprolol Tartrate 25 MG TAB PO SCH ×2 (08:33→22:51)
[2017-05-16] MEDS: Aspirin 325 MG TAB PO SCH (08:33)
[2017-05-16] MEDS: Isosorbide Dinitrate 20 MG TAB PO SCH (08:33)
[2017-05-16] MEDS: Stress 600 With Zinc 1 TAB PO SCH ×2 (08:33→22:51)
[2017-05-16] MEDS: Atorvastatin Calcium 40 MG TAB PO SCH (08:33)
[2017-05-16] MEDS: Furosemide 40 MG TAB PO SCH (08:34)
[2017-05-16] MEDS: metFORMIN XR 500 MG TAB PO SCH ×2 (08:34→16:06)
[2017-05-16] MEDS: Saccharomyces boulardii 250 MG CAP PO SCH (08:34)
[2017-05-16] MEDS: Gabapentin 300 MG CAP PO SCH ×3 (08:34→22:51)
[2017-05-16] MEDS: Docusate 100 MG CAP PO SCH ×2 (08:35→22:58)
[2017-05-16] MEDS: Polyethylene Glycol 3350 17 GM Packet PO SCH (08:36)
[2017-05-16] MEDS: Enoxaparin Sodium 40 MG/0.4 ML SYRINGE SC SCH (08:37)
[2017-05-16] MEDS: Nystatin Powder 15 GM BOT TOP SCH ×3 (08:38→22:20)
[2017-05-16] MEDS: Levemir Flexpen 100 UNITS/ML PEN SC SCH (08:39)
[2017-05-16 14:28] LABS: Vancomycin, Trough 29.9 ug/mL
[2017-05-16] MEDS: Potassium Chloride 20 MEQ TAB PO SCH (22:50)
[2017-05-16] MEDS: Fish Oil 1,000 MG CAP PO SCH (22:51)
[2017-05-17 02:31] LABS: Vancomycin, Random 10.6 ug/mL (See Comment)
[2017-05-17] MEDS ORDERED: Vancomycin HCl 1 GM in Sodium Chloride 0.9% 250 ML 250 ML IVPB SCH (03:00)
[2017-05-17] MEDS: Vancomycin HCl 1 GM in Sodium Chloride 0.9% 250 ML 250 ML IVPB SCH ×2 (03:05→12:57)
[2017-05-17] MEDS: Levemir Flexpen 100 UNITS/ML PEN SC SCH (09:11)
[2017-05-17] MEDS: Polyethylene Glycol 3350 17 GM Packet PO SCH (09:13)
[2017-05-17] MEDS: Docusate 100 MG CAP PO SCH ×2 (09:14→20:48)
[2017-05-17] MEDS: Stress 600 With Zinc 1 TAB PO SCH ×2 (09:16→20:51)
[2017-05-17] MEDS: Gabapentin 300 MG CAP PO SCH ×3 (09:16→20:49)
[2017-05-17] MEDS: Aspirin 325 MG TAB PO SCH (09:16)
[2017-05-17] MEDS: Atorvastatin Calcium 40 MG TAB PO SCH (09:17)
[2017-05-17] MEDS: metFORMIN XR 500 MG TAB PO SCH ×3 (09:17→17:33)
[2017-05-17] MEDS: Furosemide 40 MG TAB PO SCH (09:18)
[2017-05-17] MEDS: Isosorbide Dinitrate 20 MG TAB PO SCH (09:18)
[2017-05-17] MEDS: Metoprolol Tartrate 25 MG TAB PO SCH ×2 (09:18→20:50)
[2017-05-17] MEDS: Saccharomyces boulardii 250 MG CAP PO SCH (09:19)
[2017-05-17] MEDS: JARDIANCE 10MG PO SCH (09:23)
[2017-05-17] MEDS: Nystatin Powder 15 GM BOT TOP SCH ×3 (09:25→20:48)
[2017-05-17] MEDS: Enoxaparin Sodium 40 MG/0.4 ML SYRINGE SC SCH (09:30)
[2017-05-17] MEDS: HumaLOG 300 UNITS/3 ML VIAL SC PRN (17:55)
[2017-05-17] MEDS: Fish Oil 1,000 MG CAP PO SCH (20:49)
[2017-05-17] MEDS: HYDROcodone/Acetaminophen 5/325 mg Tablet PO PRN (20:51)
[2017-05-17] MEDS: Potassium Chloride 20 MEQ TAB PO SCH (20:51)
[2017-05-18] MEDS: Vancomycin HCl 1 GM in Sodium Chloride 0.9% 250 ML 250 ML IVPB SCH ×2 (02:16→15:08)
[2017-05-18] MEDS: HYDROcodone/Acetaminophen 10/325 mg Tablet PO PRN ×3 (06:24→17:26)
[2017-05-18 07:08] LABS: Calc. Creatinine Clearance 110 mL/min (70-130); Estimated GFR-MDRD Greater than 90
[2017-05-18 07:16] LABS: Hemoglobin 11.3 g/dL (14.0-18.0); Platelet Count 250 thou/uL (130-400)
[2017-05-18] MEDS: Levemir Flexpen 100 UNITS/ML PEN SC SCH (09:14)
[2017-05-18] MEDS: Polyethylene Glycol 3350 17 GM Packet PO SCH (09:20)
[2017-05-18] MEDS: Enoxaparin Sodium 40 MG/0.4 ML SYRINGE SC SCH (09:21)
[2017-05-18] MEDS: Gabapentin 300 MG CAP PO SCH ×3 (09:22→20:33)
[2017-05-18] MEDS: Stress 600 With Zinc 1 TAB PO SCH ×2 (09:22→20:33)
[2017-05-18] MEDS: metFORMIN XR 500 MG TAB PO SCH ×2 (09:23→17:27)
[2017-05-18] MEDS: Metoprolol Tartrate 25 MG TAB PO SCH ×2 (09:23→20:34)
[2017-05-18] MEDS: Isosorbide Dinitrate 20 MG TAB PO SCH (09:23)
[2017-05-18] MEDS: Atorvastatin Calcium 40 MG TAB PO SCH (09:23)
[2017-05-18] MEDS: Aspirin 325 MG TAB PO SCH (09:23)
[2017-05-18] MEDS: Furosemide 40 MG TAB PO SCH (09:23)
[2017-05-18] MEDS: Docusate 100 MG CAP PO SCH ×2 (09:24→20:33)
[2017-05-18] MEDS: Nystatin Powder 15 GM BOT TOP SCH ×3 (09:24→20:34)
[2017-05-18] MEDS: JARDIANCE 10MG PO SCH (09:26)
[2017-05-18] MEDS: Saccharomyces boulardii 250 MG CAP PO SCH (09:26)
[2017-05-18 14:18] LABS: Vancomycin, Trough 15.2 ug/mL
[2017-05-18] MEDS: Potassium Chloride 20 MEQ TAB PO SCH (20:34)
[2017-05-18] MEDS: Fish Oil 1,000 MG CAP PO SCH (20:34)
[2017-05-19] MEDS: Vancomycin HCl 1 GM in Sodium Chloride 0.9% 250 ML 250 ML IVPB SCH ×2 (03:05→14:59)
[2017-05-19] MEDS: HYDROcodone/Acetaminophen 10/325 mg Tablet PO PRN (05:41)
[2017-05-19] MEDS: Gabapentin 300 MG CAP PO SCH ×3 (08:01→20:40)
[2017-05-19] MEDS: Isosorbide Dinitrate 20 MG TAB PO SCH (08:01)
[2017-05-19] MEDS: Furosemide 40 MG TAB PO SCH (08:01)
[2017-05-19] MEDS: Metoprolol Tartrate 25 MG TAB PO SCH ×2 (08:01→20:41)
[2017-05-19] MEDS: metFORMIN XR 500 MG TAB PO SCH ×2 (08:02→17:49)
[2017-05-19] MEDS: Aspirin 325 MG TAB PO SCH (08:02)
[2017-05-19] MEDS: Enoxaparin Sodium 40 MG/0.4 ML SYRINGE SC SCH (08:02)
[2017-05-19] MEDS: Saccharomyces boulardii 250 MG CAP PO SCH (08:02)
[2017-05-19] MEDS: Stress 600 With Zinc 1 TAB PO SCH ×2 (08:02→20:41)
[2017-05-19] MEDS: Atorvastatin Calcium 40 MG TAB PO SCH (08:02)
[2017-05-19] MEDS: Levemir Flexpen 100 UNITS/ML PEN SC SCH (08:03)
[2017-05-19] MEDS: JARDIANCE 10MG PO SCH (08:04)
[2017-05-19] MEDS: Nystatin Powder 15 GM BOT TOP SCH ×3 (08:45→20:39)
[2017-05-19] MEDS: Polyethylene Glycol 3350 17 GM Packet PO SCH (08:46)
[2017-05-19] MEDS: Docusate 100 MG CAP PO SCH ×2 (08:47→20:40)
[2017-05-19] MEDS: Fish Oil 1,000 MG CAP PO SCH (20:40)
[2017-05-19] MEDS: Potassium Chloride 20 MEQ TAB PO SCH (20:41)
[2017-05-20] MEDS: Vancomycin HCl 1 GM in Sodium Chloride 0.9% 250 ML 250 ML IVPB SCH ×2 (03:20→15:24)
[2017-05-20 06:04] LABS: Calc. Creatinine Clearance 118 mL/min (70-130); Estimated GFR-MDRD Greater than 90
[2017-05-20 06:12] LABS: Hemoglobin 10.8 g/dL (14.0-18.0); Platelet Count 226 thou/uL (130-400)
[2017-05-20] MEDS: JARDIANCE 10MG PO SCH (09:13)
[2017-05-20] MEDS: Atorvastatin Calcium 40 MG TAB PO SCH (09:15)
[2017-05-20] MEDS: metFORMIN XR 500 MG TAB PO SCH ×2 (09:16→16:39)
[2017-05-20] MEDS: Isosorbide Dinitrate 20 MG TAB PO SCH (09:16)
[2017-05-20] MEDS: Saccharomyces boulardii 250 MG CAP PO SCH (09:17)
[2017-05-20] MEDS: Gabapentin 300 MG CAP PO SCH ×3 (09:18→21:04)
[2017-05-20] MEDS: Metoprolol Tartrate 25 MG TAB PO SCH ×2 (09:20→21:05)
[2017-05-20] MEDS: Furosemide 40 MG TAB PO SCH (09:21)
[2017-05-20] MEDS: Levemir Flexpen 100 UNITS/ML PEN SC SCH (09:21)
[2017-05-20] MEDS: Enoxaparin Sodium 40 MG/0.4 ML SYRINGE SC SCH (09:22)
[2017-05-20] MEDS: Aspirin 325 MG TAB PO SCH ×2 (09:24→21:05)
[2017-05-20] MEDS: Docusate 100 MG CAP PO SCH ×2 (09:24→21:06)
[2017-05-20] MEDS: Polyethylene Glycol 3350 17 GM Packet PO SCH (09:25)
[2017-05-20] MEDS: Nystatin Powder 15 GM BOT TOP SCH ×3 (09:25→21:06)
[2017-05-20] MEDS: Stress 600 With Zinc 1 TAB PO SCH ×2 (09:25→21:05)
[2017-05-20 14:46] LABS: Vancomycin, Trough 14.9 ug/mL
[2017-05-20] MEDS: Potassium Chloride 20 MEQ TAB PO SCH (21:05)
[2017-05-20] MEDS: Fish Oil 1,000 MG CAP PO SCH (21:06)
[2017-05-21] MEDS: Vancomycin HCl 1 GM in Sodium Chloride 0.9% 250 ML 250 ML IVPB SCH ×2 (02:48→14:42)
[2017-05-21] MEDS: Levemir Flexpen 100 UNITS/ML PEN SC SCH (08:48)
[2017-05-21] MEDS: Enoxaparin Sodium 40 MG/0.4 ML SYRINGE SC SCH (08:53)
[2017-05-21] MEDS: Polyethylene Glycol 3350 17 GM Packet PO SCH (08:55)
[2017-05-21] MEDS: Docusate 100 MG CAP PO SCH ×2 (08:55→20:31)
[2017-05-21] MEDS: JARDIANCE 10MG PO SCH (08:57)
[2017-05-21] MEDS: Saccharomyces boulardii 250 MG CAP PO SCH (08:57)
[2017-05-21] MEDS: Stress 600 With Zinc 1 TAB PO SCH ×2 (09:00→20:30)
[2017-05-21] MEDS: Isosorbide Dinitrate 20 MG TAB PO SCH (09:00)
[2017-05-21] MEDS: Metoprolol Tartrate 25 MG TAB PO SCH ×2 (09:01→20:32)
[2017-05-21] MEDS: metFORMIN XR 500 MG TAB PO SCH ×2 (09:02→16:52)
[2017-05-21] MEDS: Furosemide 40 MG TAB PO SCH (09:02)
[2017-05-21] MEDS: Gabapentin 300 MG CAP PO SCH ×3 (09:02→20:32)
[2017-05-21] MEDS: Atorvastatin Calcium 40 MG TAB PO SCH ×2 (09:03→20:31)
[2017-05-21] MEDS: Nystatin Powder 15 GM BOT TOP SCH ×3 (09:03→20:34)
[2017-05-21] MEDS: Aspirin 325 MG TAB PO SCH (20:30)
[2017-05-21] MEDS: Fish Oil 1,000 MG CAP PO SCH (20:32)
[2017-05-21] MEDS: Potassium Chloride 20 MEQ TAB PO SCH (20:33)
[2017-05-22] MEDS: Vancomycin HCl 1 GM in Sodium Chloride 0.9% 250 ML 250 ML IVPB SCH ×2 (02:38→15:21)
[2017-05-22 02:50] VITALS: BMI 35.6
[2017-05-22 06:23] LABS: Hemoglobin 10.9 g/dL (14.0-18.0); Platelet Count 229 thou/uL (130-400)
[2017-05-22 06:29] LABS: Calc. Creatinine Clearance 193 mL/min (70-130); Estimated GFR-MDRD Greater than 90
[2017-05-22] MEDS: metFORMIN XR 500 MG TAB PO SCH ×2 (09:30→18:06)
[2017-05-22] MEDS: Isosorbide Dinitrate 20 MG TAB PO SCH (09:31)
[2017-05-22] MEDS: Furosemide 40 MG TAB PO SCH (09:31)
[2017-05-22] MEDS: Saccharomyces boulardii 250 MG CAP PO SCH (09:31)
[2017-05-22] MEDS: Enoxaparin Sodium 40 MG/0.4 ML SYRINGE SC SCH (09:33)
[2017-05-22] MEDS: Stress 600 With Zinc 1 TAB PO SCH ×2 (09:34→21:45)
[2017-05-22] MEDS: Metoprolol Tartrate 25 MG TAB PO SCH ×2 (09:36→21:45)
[2017-05-22] MEDS: Nystatin Powder 15 GM BOT TOP SCH ×3 (09:36→21:46)
[2017-05-22] MEDS: JARDIANCE 10MG PO SCH (09:37)
[2017-05-22] MEDS: Docusate 100 MG CAP PO SCH ×2 (09:39→21:43)
[2017-05-22] MEDS: Polyethylene Glycol 3350 17 GM Packet PO SCH (09:39)
[2017-05-22] MEDS: Gabapentin 300 MG CAP PO SCH ×3 (09:40→21:44)
[2017-05-22] MEDS: Levemir Flexpen 100 UNITS/ML PEN SC SCH (09:40)
[2017-05-22] MEDS: Aspirin 325 MG TAB PO SCH (21:42)
[2017-05-22] MEDS: Atorvastatin Calcium 40 MG TAB PO SCH (21:43)
[2017-05-22] MEDS: Fish Oil 1,000 MG CAP PO SCH (21:43)
[2017-05-22] MEDS: Potassium Chloride 20 MEQ TAB PO SCH (21:45)
[2017-05-23] MEDS: Vancomycin HCl 1 GM in Sodium Chloride 0.9% 250 ML 250 ML IVPB SCH ×2 (02:11→15:25)
[2017-05-23] MEDS: metFORMIN XR 500 MG TAB PO SCH ×2 (08:04→17:18)
[2017-05-23] MEDS: Gabapentin 300 MG CAP PO SCH ×3 (08:05→20:13)
[2017-05-23] MEDS: Docusate 100 MG CAP PO SCH ×2 (08:05→20:16)
[2017-05-23] MEDS: Isosorbide Dinitrate 20 MG TAB PO SCH (08:06)
[2017-05-23] MEDS: Stress 600 With Zinc 1 TAB PO SCH ×2 (08:06→20:13)
[2017-05-23] MEDS: Metoprolol Tartrate 25 MG TAB PO SCH ×2 (08:07→20:15)
[2017-05-23] MEDS: Saccharomyces boulardii 250 MG CAP PO SCH (08:07)
[2017-05-23] MEDS: Furosemide 40 MG TAB PO SCH (08:07)
[2017-05-23] MEDS: Enoxaparin Sodium 40 MG/0.4 ML SYRINGE SC SCH (08:09)
[2017-05-23] MEDS: JARDIANCE 10MG PO SCH (08:10)
[2017-05-23] MEDS: Nystatin Powder 15 GM BOT TOP SCH ×3 (08:14→20:15)
[2017-05-23] MEDS: Polyethylene Glycol 3350 17 GM Packet PO SCH (08:15)
[2017-05-23] MEDS: Levemir Flexpen 100 UNITS/ML PEN SC SCH (08:15)
[2017-05-23] MEDS: Aspirin 325 MG TAB PO SCH (20:12)
[2017-05-23] MEDS: Atorvastatin Calcium 40 MG TAB PO SCH (20:13)
[2017-05-23] MEDS: Fish Oil 1,000 MG CAP PO SCH (20:13)
[2017-05-23] MEDS: Potassium Chloride 20 MEQ TAB PO SCH (20:15)
[2017-05-24] MEDS: Vancomycin HCl 1 GM in Sodium Chloride 0.9% 250 ML 250 ML IVPB SCH ×2 (02:51→14:12)
[2017-05-24 05:32] LABS: Calc. Creatinine Clearance 174 mL/min (70-130); Estimated GFR-MDRD Greater than 90
[2017-05-24 07:11] LABS: Hemoglobin 11.8 g/dL (14.0-18.0); Platelet Count 264 thou/uL (130-400)
[2017-05-24] MEDS: Metoprolol Tartrate 25 MG TAB PO SCH ×2 (08:24→21:28)
[2017-05-24] MEDS: Isosorbide Dinitrate 20 MG TAB PO SCH (08:25)
[2017-05-24] MEDS: Gabapentin 300 MG CAP PO SCH ×3 (08:26→21:27)
[2017-05-24] MEDS: Docusate 100 MG CAP PO SCH ×2 (08:58→21:26)
[2017-05-24] MEDS: metFORMIN XR 500 MG TAB PO SCH ×2 (08:58→19:50)
[2017-05-24] MEDS: Furosemide 40 MG TAB PO SCH ×2 (08:59→13:56)
[2017-05-24] MEDS: JARDIANCE 10MG PO SCH ×2 (08:59→14:00)
[2017-05-24] MEDS: Nystatin Powder 15 GM BOT TOP SCH ×3 (08:59→21:32)
[2017-05-24] MEDS: Saccharomyces boulardii 250 MG CAP PO SCH ×2 (08:59→13:59)
[2017-05-24] MEDS: Levemir Flexpen 100 UNITS/ML PEN SC SCH (08:59)
[2017-05-24] MEDS: Enoxaparin Sodium 40 MG/0.4 ML SYRINGE SC SCH ×2 (08:59→13:55)
[2017-05-24] MEDS: Polyethylene Glycol 3350 17 GM Packet PO SCH (08:59)
[2017-05-24] MEDS: Stress 600 With Zinc 1 TAB PO SCH ×2 (09:00→21:30)
[2017-05-24] MEDS: Aspirin 325 MG TAB PO SCH (21:25)
[2017-05-24] MEDS: Atorvastatin Calcium 40 MG TAB PO SCH (21:25)
[2017-05-24] MEDS: Fish Oil 1,000 MG CAP PO SCH (21:26)
[2017-05-24] MEDS: Potassium Chloride 20 MEQ TAB PO SCH (21:30)
[2017-05-25] MEDS: Vancomycin HCl 1 GM in Sodium Chloride 0.9% 250 ML 250 ML IVPB SCH ×2 (03:05→15:18)
[2017-05-25] MEDS: Enoxaparin Sodium 40 MG/0.4 ML SYRINGE SC SCH (09:42)
[2017-05-25] MEDS: Stress 600 With Zinc 1 TAB PO SCH ×2 (09:43→21:53)
[2017-05-25] MEDS: Saccharomyces boulardii 250 MG CAP PO SCH (09:43)
[2017-05-25] MEDS: Metoprolol Tartrate 25 MG TAB PO SCH ×2 (09:44→21:52)
[2017-05-25] MEDS: Isosorbide Dinitrate 20 MG TAB PO SCH (09:44)
[2017-05-25] MEDS: metFORMIN XR 500 MG TAB PO SCH ×2 (09:44→17:42)
[2017-05-25] MEDS: Gabapentin 300 MG CAP PO SCH ×3 (09:45→21:51)
[2017-05-25] MEDS: Furosemide 40 MG TAB PO SCH (09:45)
[2017-05-25] MEDS: Docusate 100 MG CAP PO SCH ×2 (09:45→21:53)
[2017-05-25] MEDS: Nystatin Powder 15 GM BOT TOP SCH ×3 (09:46→21:52)
[2017-05-25] MEDS: JARDIANCE 10MG PO SCH (09:49)
[2017-05-25] MEDS: Levemir Flexpen 100 UNITS/ML PEN SC SCH ×2 (09:50→09:55)
[2017-05-25] MEDS: Polyethylene Glycol 3350 17 GM Packet PO SCH (09:59)
[2017-05-25] MEDS: Atorvastatin Calcium 40 MG TAB PO SCH (21:50)
[2017-05-25] MEDS: Fish Oil 1,000 MG CAP PO SCH (21:50)
[2017-05-25] MEDS: Aspirin 325 MG TAB PO SCH (21:50)
[2017-05-25] MEDS: Potassium Chloride 20 MEQ TAB PO SCH (21:52)
[2017-05-26] MEDS: Vancomycin HCl 1 GM in Sodium Chloride 0.9% 250 ML 250 ML IVPB SCH ×2 (02:54→15:32)
[2017-05-26 05:54] LABS: Calc. Creatinine Clearance 182 mL/min (70-130); Estimated GFR-MDRD Greater than 90
[2017-05-26 06:09] LABS: Hemoglobin 11.5 g/dL (14.0-18.0); Platelet Count 252 thou/uL (130-400)
[2017-05-26] MEDS: Enoxaparin Sodium 40 MG/0.4 ML SYRINGE SC SCH (09:41)
[2017-05-26] MEDS: JARDIANCE 10MG PO SCH (09:42)
[2017-05-26] MEDS: Isosorbide Dinitrate 20 MG TAB PO SCH (09:42)
[2017-05-26] MEDS: Saccharomyces boulardii 250 MG CAP PO SCH (09:42)
[2017-05-26] MEDS: Gabapentin 300 MG CAP PO SCH ×3 (09:43→21:11)
[2017-05-26] MEDS: Polyethylene Glycol 3350 17 GM Packet PO SCH (09:44)
[2017-05-26] MEDS: metFORMIN XR 500 MG TAB PO SCH ×2 (09:44→17:33)
[2017-05-26] MEDS: Stress 600 With Zinc 1 TAB PO SCH ×2 (09:44→21:10)
[2017-05-26] MEDS: Furosemide 40 MG TAB PO SCH (09:44)
[2017-05-26] MEDS: Metoprolol Tartrate 25 MG TAB PO SCH ×2 (09:45→21:11)
[2017-05-26] MEDS: Nystatin Powder 15 GM BOT TOP SCH ×3 (09:50→21:13)
[2017-05-26] MEDS: Docusate 100 MG CAP PO SCH ×2 (10:01→21:12)
[2017-05-26] MEDS: diphenhydrAMINE 25 MG CAP PO PRN ×2 (11:59→17:32)
[2017-05-26 15:12] LABS: Vancomycin, Trough 14.9 ug/mL
[2017-05-26] MEDS: Triamcinolone 0.1% Cream 15 GM TUBE TOP PRN ×2 (16:03→21:16)
[2017-05-26] MEDS: Acetaminophen 325 MG TAB PO PRN (18:30)
[2017-05-26] MEDS: Fish Oil 1,000 MG CAP PO SCH (21:10)
[2017-05-26] MEDS: Aspirin 325 MG TAB PO SCH (21:10)
[2017-05-26] MEDS: Atorvastatin Calcium 40 MG TAB PO SCH (21:11)
[2017-05-26] MEDS: Potassium Chloride 20 MEQ TAB PO SCH (21:11)
[2017-05-27] MEDS: Vancomycin HCl 1 GM in Sodium Chloride 0.9% 250 ML 250 ML IVPB SCH (02:57)
[2017-05-27] MEDS: diphenhydrAMINE 25 MG CAP PO PRN ×4 (03:09→22:07)
[2017-05-27] MEDS: Acetaminophen 325 MG TAB PO PRN ×4 (05:48→22:07)
[2017-05-27] MEDS ORDERED: INVOKANA PO SCH (09:00)
[2017-05-27] MEDS: Furosemide 40 MG TAB PO SCH (09:31)
[2017-05-27] MEDS: Metoprolol Tartrate 25 MG TAB PO SCH ×2 (09:31→21:48)
[2017-05-27] MEDS: metFORMIN XR 500 MG TAB PO SCH ×2 (09:31→17:51)
[2017-05-27] MEDS: Isosorbide Dinitrate 20 MG TAB PO SCH (09:31)
[2017-05-27] MEDS: Gabapentin 300 MG CAP PO SCH ×3 (09:31→21:48)
[2017-05-27] MEDS: Stress 600 With Zinc 1 TAB PO SCH ×2 (09:32→21:48)
[2017-05-27] MEDS: Docusate 100 MG CAP PO SCH ×2 (09:32→21:49)
[2017-05-27] MEDS: Enoxaparin Sodium 40 MG/0.4 ML SYRINGE SC SCH (09:32)
[2017-05-27] MEDS: Saccharomyces boulardii 250 MG CAP PO SCH (09:32)
[2017-05-27] MEDS: Polyethylene Glycol 3350 17 GM Packet PO SCH (09:34)
[2017-05-27] MEDS: Nystatin Powder 15 GM BOT TOP SCH ×3 (09:34→21:49)
[2017-05-27] MEDS: Levemir Flexpen 100 UNITS/ML PEN SC SCH (09:39)
[2017-05-27] MEDS: Triamcinolone 0.1% Cream 15 GM TUBE TOP PRN ×2 (09:43→21:47)
[2017-05-27 11:56] LABS: #Eosinphils 0.5 thou/uL (0.0-0.7); #Lymphocytes 0.3 thou/uL (1.20-3.40); #Monocytes 0.6 thou/uL (0.11-0.59); %Basophils 0.4 % (0.0-1.0); %Eosinophils 4.5 % (0.0-10.0); %Lymphocytes 2.9 % (21.0-51.0); %Monocytes 4.8 % (0.0-10.0); %Neutrophils 87.5 % (42.0-75.0); Hemoglobin 12.1 g/dL (14.0-18.0); Mean Corpuscular HGB CONC 34.8 g/dL (32.0-36.0); Mean Corpuscular Hemoglobin 28.9 pg (27.0-31.0); Mean Platelet Volume 6.6 fL (7.4-10.4); Platelet Count 271 thou/uL (130-400); RBC Distribution Width 14.3 % (11.5-14.5); White Blood Cell (WBC) Count 11.5 thou/uL (4.8-10.8)
[2017-05-27 12:12] LABS: ALT (SGPT) 62 U/L (8-55); AST (SGOT) 45 U/L (5-34); Albumin 3.2 g/dL (3.4-4.8); Alkaline Phosphatase 73 U/L (40-150); Anion Gap 18 mmol/L (10-20); BUN (Urea Nitrogen) 18 mg/dL (8.4-25.7); Bilirubin, Total 1.8 mg/dL (0.2-1.2); Calc. Creatinine Clearance 132 mL/min (70-130); Calcium 9.1 mg/dL (7.8-10.44); Carbon Dioxide 23 mmol/L (23-31); Chloride 95 mmol/L (98-107); Estimated GFR-MDRD 79; Globulin 2.8 g/dL (2.4-3.5); Glucose 140 mg/dL (83-110); Potassium 4.7 mmol/L (3.5-5.1); Sodium 131 mmol/L (136-145)
[2017-05-27] MEDS: Fish Oil 1,000 MG CAP PO SCH (21:47)
[2017-05-27] MEDS: Atorvastatin Calcium 40 MG TAB PO SCH (21:48)
[2017-05-27] MEDS: Potassium Chloride 20 MEQ TAB PO SCH (21:48)
[2017-05-27] MEDS: Aspirin 325 MG TAB PO SCH (21:48)
[2017-05-27] MEDS ORDERED: Floranex Packet PO SCH (23:00)
[2017-05-27] MEDS ORDERED: Clindamycin/D5W 600 MG in Premix Bag 1 BAG IVPB SCH (23:00)
[2017-05-27] MEDS ORDERED: Clindamycin/D5W 600 mg/50 ml Premix Bag ONE (23:10)
[2017-05-28] MEDS ORDERED: Clindamycin/D5W 600 mg/50 ml Premix Bag ONE ×2 (05:14→13:27)
[2017-05-28] MEDS: Clindamycin/D5W 600 MG in Premix Bag 1 BAG IVPB SCH ×2 (06:11→13:30)
[2017-05-28] MEDS: Acetaminophen 325 MG TAB PO PRN ×2 (06:24→17:46)
[2017-05-28] MEDS: diphenhydrAMINE 25 MG CAP PO PRN ×2 (06:24→12:26)
[2017-05-28 06:28] LABS: #Basophils 0.1 thou/uL (0.0-0.2); #Eosinphils 0.6 thou/uL (0.0-0.7); #Lymphocytes 0.5 thou/uL (1.20-3.40); #Monocytes 0.7 thou/uL (0.11-0.59); #Neutrophils 10.9 thou/uL (1.40-6.50); %Basophils 0.7 % (0.0-1.0); %Eosinophils 4.8 % (0.0-10.0); %Lymphocytes 3.9 % (21.0-51.0); %Monocytes 5.2 % (0.0-10.0); %Neutrophils 85.5 % (42.0-75.0); Hemoglobin 12.2 g/dL (14.0-18.0); Mean Corpuscular HGB CONC 34.8 g/dL (32.0-36.0); Mean Corpuscular Hemoglobin 28.8 pg (27.0-31.0); Mean Corpuscular Volume 82.9 fl (80.0-94.0); Mean Platelet Volume 6.4 fL (7.4-10.4); Platelet Count 258 thou/uL (130-400); RBC Distribution Width 14.4 % (11.5-14.5); Red Blood Cell (RBC) Count 4.25 mill/uL (4.70-6.10); White Blood Cell (WBC) Count 12.7 thou/uL (4.8-10.8)
[2017-05-28] MEDS ORDERED: INVOKANA PO SCH (09:00)
[2017-05-28] MEDS ORDERED: Floranex Packet PO SCH (09:00)
[2017-05-28] MEDS: Saccharomyces boulardii 250 MG CAP PO SCH (09:40)
[2017-05-28] MEDS: Isosorbide Dinitrate 20 MG TAB PO SCH (09:40)
[2017-05-28] MEDS: metFORMIN XR 500 MG TAB PO SCH ×2 (09:40→17:39)
[2017-05-28] MEDS: Gabapentin 300 MG CAP PO SCH ×2 (09:40→15:21)
[2017-05-28] MEDS: Stress 600 With Zinc 1 TAB PO SCH (09:40)
[2017-05-28] MEDS: Triamcinolone 0.1% Cream 15 GM TUBE TOP PRN (09:41)
[2017-05-28] MEDS: Metoprolol Tartrate 25 MG TAB PO SCH (09:41)
[2017-05-28] MEDS: Furosemide 40 MG TAB PO SCH (09:41)
[2017-05-28] MEDS: Enoxaparin Sodium 40 MG/0.4 ML SYRINGE SC SCH (09:42)
[2017-05-28] MEDS: Nystatin Powder 15 GM BOT TOP SCH ×2 (09:42→15:23)
[2017-05-28] MEDS: Levemir Flexpen 100 UNITS/ML PEN SC SCH (09:42)
[2017-05-28] MEDS: Docusate 100 MG CAP PO SCH (09:43)
[2017-05-28] MEDS: Polyethylene Glycol 3350 17 GM Packet PO SCH (09:43)
[2017-05-28] MEDS ORDERED: Cepastat Lozenges 1 LOZ PO PRN (11:10)
[2017-05-28] MEDS: HYDROcodone/Acetaminophen 5/325 mg Tablet PO PRN ×2 (11:25→13:31)
[2017-05-28] MEDS ORDERED: HYDROcodone/Acetaminophen 5/325 mg Tablet PO SCH (14:45)
[2017-05-28] MEDS ORDERED: Sodium Chloride 0.9% 500 ML IV SCH (17:00)
[2017-05-28] MEDS ORDERED: Sodium Chloride 0.9% 1,000 ML IV SCH (17:00)
[2017-05-28 17:23] LABS: Band 22 % (5-11); Eosinophils 6 % (0-10); Hemoglobin 10.8 g/dL (14.0-18.0); Lymphocytes 5 % (21-51); MDiff Complete? YES; Mean Corpuscular HGB CONC 33.8 g/dL (32.0-36.0); Mean Corpuscular Volume 82.6 fl (80.0-94.0); Mean Platelet Volume 6.7 fL (7.4-10.4); Monocytes 6 % (0-10); Neutrophil 61 % (42-75); Platelet Count 240 thou/uL (130-400); RBC Distribution Width 14.3 % (11.5-14.5); Red Blood Cell (RBC) Count 3.87 mill/uL (4.70-6.10); Small Platelets SLIGHT; White Blood Cell (WBC) Count 13.7 thou/uL (4.8-10.8)
[2017-05-28 20:33] VITALS: BP 109/53; TEMP 102.7
--- NOTE | 2017-05-29 08:35 | DIS ---
REASON FOR HISTORY AND PHYSICAL: The patient is a 71-year-old white male who was admitted to [facility] on 04/19/2017. The patient had a chronic diabetic foot ulcer that apparently got infected. The patient presented with fevers, chills, and was found to have an infected left serjio betic foot ulcer. The patient was admitted to the hospital and placed on broad-spectrum IV antibioti cs. Blood cultures came back positive for MRSA. The patient underwent debridement by jeffrey Burrell, and wound cultures from that I&D were also positive for MRSA. The patient was determined t o need 6 weeks of IV antibiotics and vancomycin, which was MRSA sensitivities were positive for and c ontinued wound treatment, wound care and nonambulatory status thus the patient was transferred from [facility] to [facility] to the jail unit. BRIEF SUMMARY OF HOSPITAL COURSE: The patient had a local wound care to the left plantar foot of his diabetic ulcer consistent with sarcoid joint of the foot. Apparently, MRI performed at [facility] was negative for osteomyelitis. The patient was nonambulatory during his stay. Delfina fall was doing well with frequent followup visits to Dr. Roa and the plantar wound was healing. He d id develop some ulcerations and eschars on the dorsal aspect of the first joint of the big toe that w as treated locally as well. On the day, Monday05/26/2017, he began developing confluent erythematou s rash, nonraised on his torso, groin, and anterior thighs that was slightly pruritic. He was treate d with Benadryl, then that evening he spiked a fever of 101.2. The rash began to spread. The next d ay on evaluation, the vancomycin was discontinued with concern that he may be allergic to vancomycin and that evening, the patient was started on clindamycin 600 mg IV q.8 hours, which the MRSA culture showed sensitivity to. The patient began having more fevers up to 102 with chills the following day. On the day of discharge, the patient in addition had elevated white blood count of 13,500 and a lac tic acid was positive at 2.4. The patient also became slightly hypotensive with systolic blood press ure of 80, which responded to IV fluids 500 mL normal saline bolus plus continuous IV fluids because the patient continued to have fevers, elevated white count and now some hypotension. It was deemed t hat the patient probably may have had further bacteremia related to his diabetic foot ulcer that was not responsive to IV vancomycin nor clindamycin, and the patient was determined needed a higher level of care. [facility] was contacted for possible transfer to inpatient status. [facility] requested the patient be transferred directly to the emergency room. I discussed the case with , emergency room physician, who accepted the patient. He will be s ent by EMS. He will continue IV fluids normal saline 125 mL an hour. At that time, the patient's bl ood pressure was stable with systolic blood pressure in the high 90s. Other than the fevers and chil ls, the patient was alert and oriented x3 without signs of acute severe decompensation and thus was s table for transfer.
== END 2017-05-28 20:50 | disposition short-term general hospital (02) | DRG 638 ==
LOC: BURMED 10:35
PROVIDERS: ADMIT Family Medicine; ATTEND Family Medicine
DX: E11.621 Type 2 diabetes mellitus with foot ulcer (principal); R78.81 Bacteremia; L97.529 Non-pressure chronic ulcer of other part of left foot with unspecified severity; E11.42 Type 2 diabetes mellitus with diabetic polyneuropathy; E11.51 Type 2 diabetes mellitus with diabetic peripheral angiopathy without gangrene; B95.62 Methicillin resistant Staphylococcus aureus infection as the cause of diseases classified elsewhere; I10 Essential (primary) hypertension; E78.5 Hyperlipidemia, unspecified; I25.10 Atherosclerotic heart disease of native coronary artery without angina pectoris; L27.0 Generalized skin eruption due to drugs and medicaments taken internally; Z79.82 Long term (current) use of aspirin; Z79.4 Long term (current) use of insulin; Z79.899 Other long term (current) drug therapy; Z95.5 Presence of coronary angioplasty implant and graft; Z96.653 Presence of artificial knee joint, bilateral; T36.8X5A Adverse effect of other systemic antibiotics, initial encounter; Y92.239 Unspecified place in hospital as the place of occurrence of the external cause
CPT/HCPCS: 36415; 36416; 80053; 80202; 82565; 83605; 85014; 85018; 85025; 85049; 87040; 97602; A4216; G8987-GO-CJ; G8988-GO-CI; G8990-GP-CH; G8991-GP-CH; J1642; J1650; J1815; J3370; J3490; J7050

== ENCOUNTER 2018-04-06 10:59 | Emergency (ER) | payer MEDICARE ==
[2018-04-06 11:43] LABS: #Basophils 0.1 thou/uL (0.0-0.2); #Eosinphils 0.1 thou/uL (0.0-0.7); #Lymphocytes 0.9 thou/uL (1.20-3.40); #Neutrophils 9.4 thou/uL (1.40-6.50); %Eosinophils 1.1 % (0.0-10.0); %Lymphocytes 7.9 % (21.0-51.0); %Monocytes 8.9 % (0.0-10.0); Hemoglobin 12.7 g/dL (14.0-18.0); Mean Corpuscular HGB CONC 33.9 g/dL (32.0-36.0); Mean Corpuscular Hemoglobin 27.6 pg (27.0-31.0); Mean Corpuscular Volume 81.5 fL (78.0-98.0); Platelet Count 441 thou/uL (130-400); RBC Distribution Width 13.5 % (11.5-14.5); White Blood Cell (WBC) Count 11.6 thou/uL (4.8-10.8)
[2018-04-06] MEDS ORDERED: Ibuprofen 800 MG TAB ONE (11:51)
[2018-04-06 12:00] LABS: ALT (SGPT) 21 U/L (8-55); AST (SGOT) 19 U/L (5-34); Albumin 3.4 g/dL (3.4-4.8); Alkaline Phosphatase 91 U/L (40-150); Anion Gap 17 mmol/L (10-20); BUN (Urea Nitrogen) 13 mg/dL (8.4-25.7); Calc. Creatinine Clearance 0 mL/min (70-130); Calcium 10.3 mg/dL (7.8-10.44); Carbon Dioxide 24 mmol/L (23-31); Chloride 98 mmol/L (98-107); Estimated GFR-MDRD 84; Globulin 4.2 g/dL (2.4-3.5); Glucose 230 mg/dL (83-110); Potassium 5.1 mmol/L (3.5-5.1); Protein, Total 7.6 g/dL (5.8-8.1); Sodium 134 mmol/L (136-145)
--- NOTE | 2018-04-06 12:21 | RAD ---
RIGHT KNEE FOUR VIEWS: HISTORY: Right knee pain. FINDINGS: A total knee prosthesis with long-stem components is in place. No perihardware lucency is reliably d emonstrated. Soft tissue swelling is evident about the knee. There are irregular lucencies and poor cortication involving the medial aspect of the remaining medial femoral condyle and the medial tibia l plateau. There is some fragmentation of the remaining lateral femoral condyle, in the area of prom inent soft tissue swelling. Fluid distends the suprapatella bursa on the lateral view. Calcification over the arterial structures. IMPRESSION: 1. Right knee prosthesis without perihardware lucency evident. The prominent soft tissue swelling, joint fluid, and loss of well corticated margins suggest an aggressive process, such as septic arthri tis and osteomyelitis. Correlation with the patient's clinical symptoms is required. Please conside r orthopedic evaluation if the patient is not treated for an infectious process. 2. Atherosclerosis. The findings were called to Dr. Duran at the [facility] at 1159 hours. CODE CR POS: [facility]
[2018-04-06] MEDS ORDERED: Piperacillin/Tazobactam 3.375 GM VIAL ONE (12:26)
== END 2018-04-06 13:39 | disposition short-term general hospital (02) ==
LOC: BURERS 10:59
DX: M00.9 Pyogenic arthritis, unspecified (principal); I25.10 Atherosclerotic heart disease of native coronary artery without angina pectoris; E11.9 Type 2 diabetes mellitus without complications; E78.5 Hyperlipidemia, unspecified; I10 Essential (primary) hypertension; Z79.899 Other long term (current) drug therapy; Z79.82 Long term (current) use of aspirin; Z79.4 Long term (current) use of insulin
CPT/HCPCS: 80053; 83605; 85025; 87040; 96361; 96365; J2543

== ENCOUNTER 2018-08-18 20:39 | Emergency (ER) | payer MEDICARE ==
--- NOTE | 2018-08-18 21:37 | RAD ---
RIGHT FOOT: 08/18/18 Three views. HISTORY: Injury. Injury to third toe. FINDINGS/IMPRESSION: Toes are poorly evaluated due to positioning. There is a pes planus. Severe degenerative changes invo lving the tarsals suggests Charcot type joints. Degenerative changes at the first MTP joint. Severe degenerative changes at the tarsometatarsals and intertarsal joints. The metatarsals appear intact. No definite phalangeal fracture identified. The third toe is poorly ev aluated due to positioning. If there is concern of third toe fracture, recommend dedicated images of the third toe with appropriate positioning. I cannot exclude fracture of the proximal phalanx of the third toe on this exam. POS: [facility]
== END 2018-08-18 21:45 | disposition home or self-care (01) ==
LOC: BURERS 20:39
DX: S90.414A Abrasion, right lesser toe(s), initial encounter (principal); I73.9 Peripheral vascular disease, unspecified; I25.10 Atherosclerotic heart disease of native coronary artery without angina pectoris; I10 Essential (primary) hypertension; E11.9 Type 2 diabetes mellitus without complications; E78.5 Hyperlipidemia, unspecified; W22.8XXA Striking against or struck by other objects, initial encounter; Z79.899 Other long term (current) drug therapy; Z79.82 Long term (current) use of aspirin; Z79.4 Long term (current) use of insulin

== ENCOUNTER 2018-12-27 19:24 | Emergency (ER) | payer MEDICARE | END 2018-12-27 20:00 | disposition home or self-care (01) | LOC: BURERS 19:24 | DX: T24.112A Burn of first degree of left thigh, initial encounter (principal); T31.0 Burns involving less than 10% of body surface; I25.10 Atherosclerotic heart disease of native coronary artery without angina pectoris; E11.9 Type 2 diabetes mellitus without complications; E78.5 Hyperlipidemia, unspecified; E78.00 Pure hypercholesterolemia, unspecified; I10 Essential (primary) hypertension; Z79.899 Other long term (current) drug therapy; Z79.4 Long term (current) use of insulin; Z79.82 Long term (current) use of aspirin; Z95.5 Presence of coronary angioplasty implant and graft; X11.8XXA Contact with other hot tap-water, initial encounter | CPT/HCPCS: 99281 ==

== ENCOUNTER 2019-02-01 17:57 | Emergency (ER) | payer MEDICARE ==
[2019-02-01] MEDS ORDERED: Clindamycin/D5W 600 mg/50 ml Premix Bag ONE (18:29)
[2019-02-01 18:50] LABS: #Basophils 0.1 thou/uL (0.0-0.2); #Eosinphils 0.1 thou/uL (0.0-0.7); #Lymphocytes 1.6 thou/uL (1.20-3.40); #Neutrophils 10.1 thou/uL (1.40-6.50); %Basophils 1.1 % (0.0-1.0); %Eosinophils 1.1 % (0.0-10.0); %Lymphocytes 12.3 % (21.0-51.0); %Monocytes 7.3 % (0.0-10.0); %Neutrophils 78.1 % (42.0-75.0); Mean Corpuscular HGB CONC 32.8 g/dL (32.0-36.0); Mean Corpuscular Hemoglobin 29.8 pg (27.0-31.0); Mean Corpuscular Volume 90.8 fL (78.0-98.0); Mean Platelet Volume 6.8 fL (7.4-10.4); Platelet Count 251 thou/uL (130-400); RBC Distribution Width 12.8 % (11.5-14.5); Red Blood Cell (RBC) Count 4.37 mill/uL (4.70-6.10)
[2019-02-01 19:02] LABS: ALT (SGPT) 14 U/L (8-55); AST (SGOT) 13 U/L (5-34); Albumin 3.6 g/dL (3.4-4.8); Alkaline Phosphatase 80 U/L (40-110); Anion Gap 19 mmol/L (10-20); BUN (Urea Nitrogen) 17 mg/dL (8.4-25.7); Bilirubin, Total 1.2 mg/dL (0.2-1.2); Calc. Creatinine Clearance 0 mL/min (70-130); Calcium 9.3 mg/dL (7.8-10.44); Carbon Dioxide 22 mmol/L (23-31); Chloride 98 mmol/L (98-107); Estimated GFR-MDRD 65; Globulin 3.5 g/dL (2.4-3.5); Glucose 250 mg/dL (83-110); Potassium 4.3 mmol/L (3.5-5.1); Protein, Total 7.1 g/dL (5.8-8.1); Sodium 135 mmol/L (136-145)
== END 2019-02-01 20:30 | disposition short-term general hospital (02) ==
LOC: BURERS 17:57
DX: L03.116 Cellulitis of left lower limb (principal); E11.22 Type 2 diabetes mellitus with diabetic chronic kidney disease; I25.10 Atherosclerotic heart disease of native coronary artery without angina pectoris; I12.9 Hypertensive chronic kidney disease with stage 1 through stage 4 chronic kidney disease, or unspecified chronic kidney disease; N18.9 Chronic kidney disease, unspecified; Z79.84 Long term (current) use of oral hypoglycemic drugs; Z79.899 Other long term (current) drug therapy; Z79.82 Long term (current) use of aspirin
CPT/HCPCS: 80053; 83605; 85025; 87040; 96365; J3490

== ENCOUNTER 2020-03-06 14:22 | Emergency (ER) | payer MEDICARE ==
[2020-03-06] MEDS ORDERED: Lidocaine 1% PF 5 ML VIAL ONE (14:47)
== END 2020-03-06 15:04 | disposition home or self-care (01) ==
LOC: BURERS 14:22
DX: L72.8 Other follicular cysts of the skin and subcutaneous tissue (principal); I25.10 Atherosclerotic heart disease of native coronary artery without angina pectoris; I12.9 Hypertensive chronic kidney disease with stage 1 through stage 4 chronic kidney disease, or unspecified chronic kidney disease; N18.9 Chronic kidney disease, unspecified; E11.22 Type 2 diabetes mellitus with diabetic chronic kidney disease
CPT/HCPCS: 23030; 87070; 87205

== ENCOUNTER 2020-05-13 07:34 | Outpatient (CLI) | payer MEDICARE ==
[2020-05-13] MEDS ORDERED: Iopamidol 370 76% 100 ML VIAL ONE (11:27)
== END 2020-05-13 07:35 | disposition home or self-care (01) ==
LOC: BURCT 07:34
PROVIDERS: ATTEND Orthopaedic Surgery
DX: Z01.818 Encounter for other preprocedural examination (principal); R22.31 Localized swelling, mass and lump, right upper limb; M25.811 Other specified joint disorders, right shoulder
CPT/HCPCS: 36415; 82565; Q9967

== ENCOUNTER 2020-08-22 04:48 | Emergency (ER) | payer MEDICARE ==
[2020-08-22] MEDS ORDERED: Morphine 4 MG/ML VIAL ONE (05:12)
[2020-08-22 05:43] LABS: #Basophils 0.1 thou/uL (0.0-0.2); #Eosinphils 0.3 thou/uL (0.0-0.7); #Lymphocytes 2.4 thou/uL (1.20-3.40); #Monocytes 0.8 thou/uL (0.11-0.59); #Neutrophils 5.9 thou/uL (1.40-6.50); %Basophils 0.8 % (0.0-1.0); %Eosinophils 3.6 % (0.0-10.0); %Lymphocytes 25.5 % (21.0-51.0); %Neutrophils 62.1 % (42.0-75.0); Hemoglobin 15.2 g/dL (14.0-18.0); Mean Corpuscular HGB CONC 31.5 g/dL (32.0-36.0); Mean Corpuscular Hemoglobin 25.9 pg (27.0-31.0); Mean Corpuscular Volume 82.4 fL (78.0-98.0); Mean Platelet Volume 6.5 fL (7.4-10.4); Platelet Count 245 thou/uL (130-400); Red Blood Cell (RBC) Count 5.87 mill/uL (4.70-6.10); White Blood Cell (WBC) Count 9.5 thou/uL (4.8-10.8)
[2020-08-22 05:44] LABS: PTT 35.5 sec (22.9-36.1); Prothrombin Time 13.3 sec (12.0-14.7)
[2020-08-22 05:53] LABS: ALT (SGPT) 19 U/L (8-55); AST (SGOT) 16 U/L (5-34); Albumin 3.9 g/dL (3.4-4.8); Alkaline Phosphatase 69 U/L (40-110); Anion Gap 18 mmol/L (10-20); BUN (Urea Nitrogen) 14 mg/dL (8.4-25.7); Bilirubin, Total 1.2 mg/dL (0.2-1.2); CK (CPK) 63 U/L (30-200); Calc. Creatinine Clearance 0 mL/min (70-130); Carbon Dioxide 24 mmol/L (23-31); Chloride 100 mmol/L (98-107); Globulin 3.4 g/dL (2.4-3.5); Glucose 128 mg/dL (83-110); Potassium 3.7 mmol/L (3.5-5.1); Protein, Total 7.3 g/dL (5.8-8.1); Sodium 138 mmol/L (136-145)
[2020-08-22 06:00] LABS: CKMB 1.4 ng/mL (0-6.6)
[2020-08-22] MEDS ORDERED: Enoxaparin Sodium 100 MG/ML SYRINGE ONE (08:48)
== END 2020-08-22 09:15 | disposition short-term general hospital (02) ==
LOC: BURERS 04:48
DX: R07.2 Precordial pain (principal); I25.10 Atherosclerotic heart disease of native coronary artery without angina pectoris; E11.22 Type 2 diabetes mellitus with diabetic chronic kidney disease; I12.9 Hypertensive chronic kidney disease with stage 1 through stage 4 chronic kidney disease, or unspecified chronic kidney disease; N18.9 Chronic kidney disease, unspecified; Z89.611 Acquired absence of right leg above knee; Z79.82 Long term (current) use of aspirin; Z79.84 Long term (current) use of oral hypoglycemic drugs; Z79.899 Other long term (current) drug therapy
CPT/HCPCS: 36415; 71045; 80053; 82550; 82553; 83880; 85025; 85610; 85730; 93005; 96372; 96374; J1650; J2270